=== PATIENT | male | born 1970 | race Caucasian/White ===

== ENCOUNTER 2018-12-19 11:09 | Outpatient (CLI) | payer MEDICARE ==
[~2018-12-19] VITALS: Ht 188 cm; Wt 99.1 kg
[2018-12-19 13:41] VITALS: BP 89/68; Ht 188 cm; Wt 99.1 kg
--- NOTE | 2018-12-19 14:02 | NUR ---
1350-REC'D FROM RR. AWAKE AND ALERT, DENIES PAIN. VSS. IV PATENT AT KVO. AT BEDSIDE, CL IN EASY REACH.
[2019-02-04] MEDS ORDERED: CALCIUM CITRATE (12:02)
== END 2018-12-19 16:25 ==
LOC: D.OPS 11:09
PROVIDERS: ATTEND Family Medicine
DX: D64.9 Anemia, unspecified (principal)

== ENCOUNTER 2019-01-15 08:53 | Inpatient (IN) | payer MEDICARE ==
[~2019-01-15] VITALS: Ht 188 cm; Wt 94.1 kg
--- NOTE | 2019-01-15 09:17 | NUR ---
AWAKE/ALERT/ORIENTED AND DROWSY. BP )
[2019-01-15 09:40] LABS: APPEARANCE CLOUDY (CLEAR); BILIRUBIN NEGATIVE (NEGATIVE); COLOR YELLOW (YELLOW); GLUCOSE NEGATIVE (NEGATIVE); KETONE NEGATIVE (NEGATIVE); NITRITE NEGATIVE (NEGATIVE); PROTEIN 1+ mg/dL (NEGATIVE); UROBILINOGEN NORMAL (NORMAL)
[2019-01-15 09:42] LABS: BACTERIA MANY /hpf (NONE SEEN); EPITHELIAL CELLS 0-5 /hpf (0-5); MUCUS <1+ /lpf (NONE SEEN)
[2019-01-15 09:44] VITALS: BP 93/59
[2019-01-15 09:58] LABS: ANION GAP 11.7 mmol/L (8-16); BILIRUBIN - TOTAL 0.26 mg/dL (0.2-1.3); CARBON DIOXIDE 19.7 mmol/L (21.0-32.0); CREATININE - SERUM 1.3 mg/dL (0.6-1.3); POTASSIUM - SERUM 3.4 mmol/L (3.5-5.1); PROTEIN - SERUM 5.9 g/dL (6.4-8.2)
[2019-01-15 10:21] LABS: BASOPHILS 0.3 % (0-2); EOSINOPHILS 2.3 % (0-7); HEMATOCRIT 20.4 % (42.0-54.0); IMMATURE GRANULOCYTES 1.8 % (0-5); LYMPHOCYTES 16.5 % (15-50); MCH 28.4 pg (26.0-34.0); MCHC 32.4 g/dL (31.0-37.0); MCV 87.9 fL (80.0-100.0); MEAN PLATELET VOLUME 9.7 fL (7.4-10.4); NEUTROPHILS 70.1 % (40-80); PLATELET COUNT 94 10x3/uL (130-400); RBC 2.32 10x6/uL (4.20-6.10); RDW 19.2 % (11.5-14.5)
[2019-01-15 10:52] LABS: HEMOGLOBIN 6.6 g/dL (13.5-17.5)
[2019-01-15 10:53] LABS: ANISOCYTOSIS OCC; HYPOCHROMASIA OCC; PLATELET ESTIMATE DECREASED; POLYCHROMASIA OCC
[2019-01-15 11:02] VITALS: BP 94/60
[2019-01-15 11:03] LABS: MAGNESIUM - SERUM 1.4 mg/dL (1.8-2.4); THYROID STIMULATING HORMONE 14.33 uIU/mL (0.36-3.74)
--- NOTE | 2019-01-15 11:32 | NUR ---
SUPRAPUBIC DRSG SATURATED. DRSG CHANGE PERFORMED. SKIN INTACT AT AREA. PT HAS 2 DRSGS TO SACRAL AREA BOTH WITH D/I DRSGS DATED 01/14/19
--- NOTE | 2019-01-15 11:40 | MORECARE ---
CASE MANAGEMENT DISCHARGE SUMMARY PATIENT: HARSHAD OLIVER UNIT: [id number] ADM DATE: 01/15/19 AGE: 48 : 68 SEX: M ROOM/BED: D.1212 AUTHOR: PEDRO REINOSO PHYSICIAN: REFERRING PHYSICIAN: ASHKAN LANG MD DATE OF SERVICE: 01/15/19 Discharge Plan Patient Name: HARSHAD OLIVER Facility: [facility]:[place] : 1970 Planned Disposition: Anticipated Discharge Date: Discharge Date: Expected LOS: Initial Reviewer: [email or web address] Initial Review Date: 01/15/2019 Generated: 01/15/19 12:40 pm Patient Name: HARSHAD OLIVER Page 85654 at 1140 All edits/amendments must be made on the electronic document DICTATION DATE: 01/15/19 1140 PHYSICIAN EXTENDER: MICHAEL 01/15/19 1140 RPT#: [id number] DC DATE: STATUS: ADM IN [facility] [address] [place] [address] END OF REPORT
--- NOTE | 2019-01-15 11:55 | NUR ---
BLOOD TRANSFUSION INITIATED SEE PAPER DOCUMENTATION
[2019-01-15 12:10] VITALS: Ht 188 cm; Wt 94.1 kg
--- NOTE | 2019-01-15 12:24 | NUR ---
REPORT CALLED TO SMITH BALLESTEROS BY SBARF FORMAT
--- NOTE | 2019-01-15 12:59 | NUR ---
RECIEVED PT FROM ER TO ROOM 1211. PT HAS A PIC LINE INFUSING BLOOD @ 150. RR EVEN AND UNLABORED. PT IS STATING HE DOES NOT WANT TO BE ADMITED. ANSHUL WAS NOTIFIED AND SAID SHE WOULD BE DOWN TO TALK TO HIM. BED LOCKED AND IN LOWEST POSITION. CALL LIGHT WITHIN REACH. WILL CTM
--- NOTE | 2019-01-15 13:45 | MORECARE ---
CASE MANAGEMENT DISCHARGE SUMMARY PATIENT: HARSHAD OLIVER UNIT: [id number] ADM DATE: 01/15/19 AGE: 48 : 68 SEX: M ROOM/BED: D.1211 AUTHOR: PEDRO REINOSO PHYSICIAN: REFERRING PHYSICIAN: ASHKAN LANG MD DATE OF SERVICE: 01/15/19 Discharge Plan Patient Name: HARSHAD OLIVER Facility: [facility]:[place] : 1970 Planned Disposition: Halfway Facility Anticipated Discharge Date: 01/17/19 Discharge Date: Expected LOS: 2 Initial Reviewer: [email or web address] Initial Review Date: 01/15/2019 Generated: 01/15/19 2:45 pm DCPIA - Discharge Planning Initial Assessment Updated by [email or web address]: April Mcgowan on 01/15/19 1:41 pm * Is the patient Alert and Oriented? Yes * How many steps to enter\exit or inside your home? none * PCP Dr. Mesha Jang * Pharmacy [facility] * Preadmission Environment Halfway Facility * Facility Name [facility] * ADLs Partial Dependent * Partial ADLs (Assistance needed) Ambulation Bathing Dressing Medication Management Toileting Transfers * Equipment Wheelchair * List name and contact numbers for known caregivers / representatives who currently or will assist patient after discharge: Marilou Tsai Girlfrienjigar - [phone] * Verbal permission to speak to the caregivers and representatives has been obtained from the patient. Yes * Community resources currently utilized None * Additional services required to return to the preadmission environment? No * Can the patient safely return to the preadmission environment? Yes * Has this patient been hospitalized within the prior 30 days at any hospital? Yes Last DP export: 01/15/19 10:40 a Patient Name: HARSHAD OLIVER Page 45396 at 1345 All edits/amendments must be made on the electronic document DICTATION DATE: 01/15/19 1345 PROJECT MANAGER INDUSTRIAL: MICHAEL 01/15/19 1345 RPT#: [id number] DC DATE: STATUS: ADM IN [facility] [address] [place] [address] END OF REPORT
--- NOTE | 2019-01-15 13:54 | MORECARE ---
CASE MANAGEMENT DISCHARGE SUMMARY PATIENT: HARSHAD OLIVER UNIT: [id number] ADM DATE: 01/15/19 AGE: 48 : 68 SEX: M ROOM/BED: D.1211 AUTHOR: KEMAR,DOC PHYSICIAN: REFERRING PHYSICIAN: ASHKAN LANG MD DATE OF SERVICE: 01/15/19 Discharge Plan Patient Name: HARSHAD OLIVER Facility: [facility]:[place] : 1970 Planned Disposition: Prison Facility Anticipated Discharge Date: 01/17/19 Discharge Date: Expected LOS: 2 Initial Reviewer: [email or web address] Initial Review Date: 01/15/2019 Generated: 01/15/19 2:54 pm Comments DCP- Discharge Planning Updated by [email or web address]: April Mcgowan on 01/15/19 12:[address] DC PLAN: ANTICIPATED DC NEEDS: CM met with patient to complete initial dc planning assessment. CM educated patient on the CM role and verbal consent given by patient to complete assessment. CM verified patient's address, phone number, and emergency contact phone numbers. Patient is currently in rehab @ [facility]. At discharge patient plans to return to [facility] and feels this is a safe discharge. Patient denied further known discharge needs at this time. Patient reports either Ambulance or [facility] Van will transport him/her home at time of discharge. Patient called Marilou (girl friend/ works at [facility]) and had cm explained to her why he could not be treated at [facility] and why he had to stay here at the hospital for care. CM explained to her that he was receiving blood transfusion and getting IV ABT. She stated they could do the IV abt there at their facility. I assured her once the physician felt he was medically stable to be treated at their facility we would be dc him back. Shannan PATEL in the room during this conversation and told the patient that they had to look into why his lab values were abnormal and assured him she would get his dc back to [facility] as soon as she could. CM will continue to follow and will assist as needed with dc plans/needs. April Mcgowan RN, [facility] DCPIA - Discharge Planning Initial Assessment Updated by [email or web address]: April Mcgowan on 01/15/19 1:41 pm * Is the patient Alert and Oriented? Yes * How many steps to enter\exit or inside your home? none * PCP Dr. Mesha Jang * Pharmacy [facility] * Preadmission Environment Prison Facility * Facility Name [facility] * ADLs Partial Dependent * Partial ADLs (Assistance needed) Ambulation Bathing Dressing Medication Management Toileting Transfers * Equipment Wheelchair * List name and contact numbers for known caregivers / representatives who currently or will assist patient after discharge: Marilou Alfaro - Girlfriend - [phone] * Verbal permission to speak to the caregivers and representatives has been obtained from the patient. Yes * Community resources currently utilized None * Additional services required to return to the preadmission environment? No * Can the patient safely return to the preadmission environment? Yes * Has this patient been hospitalized within the prior 30 days at any hospital? Yes Last DP export: 01/15/19 12:45 p Patient Name: HARSHAD OLIVER Page [id number] at 1354 All edits/amendments must be made on the electronic document DICTATION DATE: 01/15/19 1354 PILL MACHINE OPERATOR: MICHAEL 01/15/19 1354 RPT#: [id number] DC DATE: STATUS: ADM IN [facility] [address] [place] [address] END OF REPORT
--- NOTE | 2019-01-15 14:02 | MORECARE ---
CASE MANAGEMENT DISCHARGE SUMMARY PATIENT: HARSHAD OLIVER UNIT: [id number] ADM DATE: 01/15/19 AGE: 48 : 68 SEX: M ROOM/BED: D.1211 AUTHOR: KEMAR,DOC PHYSICIAN: REFERRING PHYSICIAN: ASHKAN LANG MD DATE OF SERVICE: 01/15/19 Discharge Plan Patient Name: HARSHAD OLIVER Facility: [facility]:[place] : 1970 Planned Disposition: Intermediate Facility Anticipated Discharge Date: 01/17/19 Discharge Date: Expected LOS: 2 Initial Reviewer: [email or web address] Initial Review Date: 01/15/2019 Generated: 01/15/19 3:02 pm Comments DCP- Discharge Planning Updated by [email or web address]: April Mcgowan on 01/15/19 12:[address] DC PLAN: Return to [facility] (In rehab) ANTICIPATED DC NEEDS: Denied known dc needs at this time. CM met with patient to complete initial dc planning assessment. CM educated patient on the CM role and verbal consent given by patient to complete assessment. CM verified patient's address, phone number, and emergency contact phone numbers. Patient is currently in rehab @ [facility]. At discharge patient plans to return to [facility] and feels this is a safe discharge. Patient denied further known discharge needs at this time. Patient reports either Ambulance or [facility] Van will transport him/her home at time of discharge. Patient called Marilou (girl friend/ works at [facility]) and had cm explained to her why he could not be treated at [facility] and why he had to stay here at the hospital for care. CM explained to her that he was receiving blood transfusion and getting IV ABT. She stated they could do the IV abt there at their facility. I assured her once the physician felt he was medically stable to be treated at their facility we would be dc him back. Shannan PATEL in the room during this conversation and told the patient that they had to look into why his lab values were abnormal and assured him she would get his dc back to [facility] as soon as she could. CM will continue to follow and will assist as needed with dc plans/needs. April Mcgowan RN, [facility] DCPIA - Discharge Planning Initial Assessment Updated by [id number]: April Mcgowan on 01/15/19 1:41 pm * Is the patient Alert and Oriented? Yes * How many steps to enter\exit or inside your home? none * PCP Dr. Mesha Jang * Pharmacy [facility] * Preadmission Environment Intermediate Facility * Facility Name [facility] * ADLs Partial Dependent * Partial ADLs (Assistance needed) Ambulation Bathing Dressing Medication Management Toileting Transfers * Equipment Wheelchair * List name and contact numbers for known caregivers / representatives who currently or will assist patient after discharge: Marilou Alfrao - Girlfriend - [phone] * Verbal permission to speak to the caregivers and representatives has been obtained from the patient. Yes * Community resources currently utilized None * Additional services required to return to the preadmission environment? No * Can the patient safely return to the preadmission environment? Yes * Has this patient been hospitalized within the prior 30 days at any hospital? Yes Last DP export: 01/15/19 12:54 p Patient Name: HARSHAD OLIVER Page [phone] at 1402 All edits/amendments must be made on the electronic document DICTATION DATE: 01/15/191401 CUSTOMER CARE ASSISTANT: MICHAEL 01/15/191401 RPT#: [id number] DC DATE: STATUS: ADM IN [facility] [address] [place] [address] END OF REPORT
--- NOTE | 2019-01-15 15:42 | NUR ---
Admitted to M3 from intermediate. Pt has numerous skin issues: right medial lower leg 1cm x 1cm - healing wound right heel: stage 1 pressure injury - nonblanchable redness and bogginess right medial foot: blanchable redness Coccyx: unstageable pressure injury 5cm x 5cm surrounded by stage 2 pressure injury extending from coccyx to bilateral ischial tuberosities to sacrum. Left scrotum has a 1cm x 1cm stage 2 pressure injury. Pt has f/c and is incontinent of bowels. Recommend an air overlay mattress, turn/reposition q 2 hours schedule, keep heels bridged/floated. Also pt will need a debriding agent for unstageable pressure injury.
[2019-01-15 20:00] VITALS: BP 92/48
--- NOTE | 2019-01-15 20:00 | NUR ---
LYING IN BED WATCHING TV. ALERT AND ORIENTED X4. SKIN IS VERY PALE. RESP EVEN AND NONLABORED. EDEMA NOTED TO BLE. BLE ARE FLACCID. PT IS PARAPLEGIC. DRSGS NOTED TO BILAT HIPS/BUTTOCKS,SACRUM. 1ST STEP OVERLAY MATTRESS IN USE. DRSG NOTED TO ABD IS SATURATED IN YELLOW FLUID WHERE ABD DRAIN SITE IS LEAKING AROUND DRAIN TUBING. PT HAS A CHRONIC RUBIN CATH DRAINING CLOUDY YELLOW URINE. LR @ 50 MLHR INFUSING IN RT UPPER ARM PICC. SR ELEVATED X2. CL IN REACH.
--- NOTE | 2019-01-15 21:00 | NUR ---
DRSG AROUND ABD DRAIN REMOVED. 4X4S AND ABD PADS APPLIED AND SECURED WITH TAPE.
--- NOTE | 2019-01-15 23:51 | NUR ---
MEDICATED WITH TYLENOL FOR C/O NECK AND SHOULDER PAIN.
[2019-01-16 00:45] VITALS: BP 90/60
[2019-01-16 04:00] VITALS: BP 90/60
--- NOTE | 2019-01-16 07:57 | NUR ---
PT RESTING, EYES CLOSED. RR EVEN AND UNLABORED. WILL CONTINUE TO MONITOR.
[2019-01-16 08:02] VITALS: BP 84/43
[2019-01-16 09:18] LABS: MCH 29.6 pg (26.0-34.0); MCHC 34.5 g/dL (31.0-37.0); MEAN PLATELET VOLUME 9.6 fL (7.4-10.4); PLATELET COUNT 78 10x3/uL (130-400); RDW 17.7 % (11.5-14.5); WBC 3.8 10x3/uL (4.8-10.8)
[2019-01-16 09:20] LABS: ALBUMIN 1.3 g/dL (3.4-5.0); ALKALINE PHOSPHATASE 244 U/L (46-116); ALT (SGPT) 11 U/L (10-68); BILIRUBIN - TOTAL 0.49 mg/dL (0.2-1.3); CALC OSMOLALITY 269 mosm/kg (275-300); CALCIUM 7.2 mg/dL (8.5-10.1); CARBON DIOXIDE 18.9 mmol/L (21.0-32.0); CHLORIDE - SERUM 106 mmol/L (98-107); GLUCOSE 72 mg/dL (74-106); MAGNESIUM - SERUM 1.6 mg/dL (1.8-2.4); POTASSIUM - SERUM 3.5 mmol/L (3.5-5.1); PROTEIN - SERUM 5.5 g/dL (6.4-8.2); SODIUM 135 mmol/L (136-145); UREA NITROGEN 15 mg/dL (7-18); eGFR NON AFRICAN AMERICAN 84 mL/min (90-120)
[2019-01-16 09:21] LABS: HEMATOCRIT 26.7 % (42.0-54.0); HEMOGLOBIN 9.2 g/dL (13.5-17.5); MCV 85.9 fL (80.0-100.0); RBC 3.11 10x6/uL (4.20-6.10)
[2019-01-16 10:17] LABS: LYMPHOCYTES 18 % (15-50); MONOCYTES 4 % (2-11); NEUTROPHILS 78 % (40-80); PLATELET ESTIMATE DECREASED
--- NOTE | 2019-01-16 11:00 | NUR ---
ABDOMINAL DRAIN DRESSING CHANGED AND LINENS AND GOWN CHANGED. PT DENIES NEEDS AT THIS TIME.
--- NOTE | 2019-01-16 11:56 | MORECARE ---
CASE MANAGEMENT DISCHARGE SUMMARY PATIENT: HARSHAD OLIVER UNIT: [id number] ADM DATE: 01/15/19 AGE: 48 : 68 SEX: M ROOM/BED: D.1211 AUTHOR: KEMAR,DOC PHYSICIAN: REFERRING PHYSICIAN: ASHKAN LANG MD DATE OF SERVICE: 01/16/19 Discharge Plan Patient Name: HARSHAD OLIVER Facility: [facility]:[place] : 1970 Planned Disposition: Fpc Facility Anticipated Discharge Date: 01/17/19 Discharge Date: Expected LOS: 2 Initial Reviewer: [email or web address] Initial Review Date: 01/15/2019 Generated: 01/16/19 12:55 pm Comments DCP- Discharge Planning Updated by [email or web address]: Tiffanie Martinez on 01/16/19 10:[address] Patient Name: HARSHAD OLIVER Admission Status: ER Accout number: [id number] Admission Date: 01-15-2019 : 1970 Admission Diagnosis: Attending: ASHKAN LANG Current LOS: 1 Anticipated DC Date: 01-17-2019 Planned Disposition: Fpc Facility Primary Insurance: MEDICARE A & B Discharge Planning Comments: CM SPOKE WITH [facility] AND THEY STATE THEY WILL SCOURING PADS SUPERVISOR PATIENT AT APPROX 3PM TODAY. NURSE CAN CALL REPORT TO CALI AT [phone]. Money Manager: Tiffanie Martinez DCP- Discharge Planning Updated by [email or web address]: April Mcgowan on 01/15/19 12:[address] DC PLAN: Return to [facility] (In rehab) ANTICIPATED DC NEEDS: Denied known dc needs at this time. CM met with patient to complete initial dc planning assessment. CM educated patient on the CM role and verbal consent given by patient to complete assessment. CM verified patient's address, phone number, and emergency contact phone numbers. Patient is currently in rehab @ [facility]. At discharge patient plans to return to [facility] and feels this is a safe discharge. Patient denied further known discharge needs at this time. Patient reports either Ambulance or [facility] Van will transport him/her home at time of discharge. Patient called Marilou (girl friend/ works at [facility]) and had cm explained to her why he could not be treated at [facility] and why he had to stay here at the hospital for care. CM explained to her that he was receiving blood transfusion and getting IV ABT. She stated they could do the IV abt there at their facility. I assured her once the physician felt he was medically stable to be treated at their facility we would be dc him back. Shannan ADAMSN in the room during this conversation and told the patient that they had to look into why his lab values were abnormal and assured him she would get his dc back to [facility] as soon as she could. CM will continue to follow and will assist as needed with dc plans/needs. April Mcgowan RN, [facility] DCPIA - Discharge Planning Initial Assessment Updated by [email or web address]: April Mcgowan on 01/15/19 1:41 pm * Is the patient Alert and Oriented? Yes * How many steps to enter\exit or inside your home? none * PCP Dr. Mesha Jang * Pharmacy [facility] * Preadmission Environment Fpc Facility * Facility Name [facility] * ADLs Partial Dependent * Partial ADLs (Assistance needed) Ambulation Bathing Dressing Medication Management Toileting Transfers * Equipment Wheelchair * List name and contact numbers for known caregivers / representatives who currently or will assist patient after discharge: Marilou Alfaro - Girlfriend - [phone] * Verbal permission to speak to the caregivers and representatives has been obtained from the patient. Yes * Community resources currently utilized None * Additional services required to return to the preadmission environment? No * Can the patient safely return to the preadmission environment? Yes * Has this patient been hospitalized within the prior 30 days at any hospital? Yes Last DP export: 01/15/19 1:02 p Patient Name: HARSHAD OLIVER Page [id number] at 1156 All edits/amendments must be made on the electronic document DICTATION DATE: 01/16/191154 RESIDENCE LIFE COORDINATOR: MICHAEL 01/16/191154 RPT#: [id number] DC DATE: STATUS: ADM IN [facility] [address] [place] [address] END OF REPORT
--- NOTE | 2019-01-16 14:18 | NUR ---
PT WAS LIFTED VIA GRAY LIFT FROM BED INTO CHAIR WITH ASSISTANCE FROM PHYSICAL THERAPY. REPORT CALLED TO CALI AT [facility]. [facility] TRANSPORT ASSISTED HIM VIA WHEELCHAIR TO THEIR TRANSPORTATION. PICC LINE WAS FLUSHED WITH 20MLS SALINE FLUSH AND SWAB CAP PLACED OVER SITES. PT DID NOT NEED DRESSING CHANGE BEFORE LEAVING. D/C PAPERWORK REVIEWED, VERBALIZED UNDERSTANDING. ALL BELONGINGS SENT WITH PT.
--- NOTE | 2019-01-17 07:55 | MORECARE ---
CASE MANAGEMENT DISCHARGE SUMMARY PATIENT: HARSHAD OLIVER UNIT: [id number] ADM DATE: 01/15/19 AGE: 48 : 68 SEX: M ROOM/BED: D.1211 AUTHOR: KEMAR,DOC PHYSICIAN: REFERRING PHYSICIAN: ASHKAN LANG MD DATE OF SERVICE: 01/17/19 Discharge Plan Patient Name: HARSHAD OLIVER Facility: [facility]:[place] : 1970 Planned Disposition: Assisted Facility Anticipated Discharge Date: 01/17/19 Discharge Date: 01/16/2019 Expected LOS: 2 Initial Reviewer: [email or web address] Initial Review Date: 01/15/2019 Generated: 01/17/19 8:55 am Comments DCP- Discharge Planning Updated by [email or web address]: Tiffanie Martinez on 01/16/19 10:[address] Patient Name: HARSHAD OLIVER Admission Status: ER Accout number: [id number] Admission Date: 01-15-2019 : 1970 Admission Diagnosis: Attending: ASHKAN LANG Current LOS: 1 Anticipated DC Date: 01-17-2019 Planned Disposition: Assisted Facility Primary Insurance: MEDICARE A & B Discharge Planning Comments: CM SPOKE WITH [facility] AND THEY STATE THEY WILL POSSUM TRAPPER PATIENT AT APPROX 3PM TODAY. NURSE CAN CALL REPORT TO CALI AT [phone]. Firer Boiler: Tiffanie Martinez DCP- Discharge Planning Updated by [email or web address]: April Mcgowan on 01/15/19 12:[address] DC PLAN: Return to [facility] (In rehab) ANTICIPATED DC NEEDS: Denied known dc needs at this time. CM met with patient to complete initial dc planning assessment. CM educated patient on the CM role and verbal consent given by patient to complete assessment. CM verified patient's address, phone number, and emergency contact phone numbers. Patient is currently in rehab @ [facility]. At discharge patient plans to return to [facility] and feels this is a safe discharge. Patient denied further known discharge needs at this time. Patient reports either Ambulance or [facility] Van will transport him/her home at time of discharge. Patient called Marilou (girl friend/ works at [facility]) and had cm explained to her why he could not be treated at [facility] and why he had to stay here at the hospital for care. CM explained to her that he was receiving blood transfusion and getting IV ABT. She stated they could do the IV abt there at their facility. I assured her once the physician felt he was medically stable to be treated at their facility we would be dc him back. Shannan ADAMSN in the room during this conversation and told the patient that they had to look into why his lab values were abnormal and assured him she would get his dc back to [facility] as soon as she could. CM will continue to follow and will assist as needed with dc plans/needs. April Mcgowan RN, [facility] DCPIA - Discharge Planning Initial Assessment Updated by [email or web address]: April Mcgowan on 01/15/19 1:41 pm * Is the patient Alert and Oriented? Yes * How many steps to enter\exit or inside your home? none * PCP Dr. Mesha Jang * Pharmacy [facility] * Preadmission Environment Assisted Facility * Facility Name [facility] * ADLs Partial Dependent * Partial ADLs (Assistance needed) Ambulation Bathing Dressing Medication Management Toileting Transfers * Equipment Wheelchair * List name and contact numbers for known caregivers / representatives who currently or will assist patient after discharge: Marilou Alfaro - Girlfriend - [phone] * Verbal permission to speak to the caregivers and representatives has been obtained from the patient. Yes * Community resources currently utilized None * Additional services required to return to the preadmission environment? No * Can the patient safely return to the preadmission environment? Yes * Has this patient been hospitalized within the prior 30 days at any hospital? Yes Last DP export: 01/16/19 10:56 a Patient Name: HARSHAD OLIVER Page 83180 at 0755 All edits/amendments must be made on the electronic document DICTATION DATE: 01/17/19754 PROFESSIONAL SERVICES SPECIALIST: MICHAEL 01/17/19754 RPT#: [id number] DC DATE:01/16/19 STATUS: DIS IN [facility] [address] [place] [address] END OF REPORT
== END 2019-01-16 14:26 | DRG 808 ==
LOC: D.ER 08:53 → D.M3 10:56
PROVIDERS: Emergency Medicine; ADMIT Internal Medicine Nephrology; ATTEND Internal Medicine Nephrology
DX: D61.810 Antineoplastic chemotherapy induced pancytopenia (principal); E43 Unspecified severe protein-calorie malnutrition; E87.1 Hypo-osmolality and hyponatremia; G82.20 Paraplegia, unspecified; T45.1X5A Adverse effect of antineoplastic and immunosuppressive drugs, initial encounter; Z68.26 Body mass index [BMI] 26.0-26.9, adult; L89.509 Pressure ulcer of unspecified ankle, unspecified stage; L89.150 Pressure ulcer of sacral region, unstageable; F10.10 Alcohol abuse, uncomplicated; E03.9 Hypothyroidism, unspecified; E87.6 Hypokalemia; E83.42 Hypomagnesemia; Z85.51 Personal history of malignant neoplasm of bladder

== ENCOUNTER 2019-02-04 11:37 | Emergency (ER) | payer MEDICARE ==
[~2019-02-04] VITALS: Ht 188 cm; Wt 90.0 kg
[2019-02-04 11:42] VITALS: Ht 188 cm; Wt 90.0 kg
[2019-02-04] MEDS ORDERED: GLUCOPHAGE500 MG PO (11:52)
[2019-02-04] MEDS ORDERED: MEGACE400 MG/10 PO (11:52)
[2019-02-04] MEDS ORDERED: MULTI-DAY VITAM1 TAB PO (11:53)
[2019-02-04] MEDS ORDERED: OMEPRAZOLE20 M1 PO (11:57)
[2019-02-04] MEDS ORDERED: MYLANTA / MAALO30 ML PO (11:57)
[2019-02-04] MEDS ORDERED: KLOR-CON M2020 MEQ PO (11:58)
[2019-02-04] MEDS ORDERED: OXYCODONE HCL E20 MG PO (11:58)
[2019-02-04] MEDS ORDERED: PHENERGAN25 M1 PO (11:59)
[2019-02-04] MEDS ORDERED: ASCORBIC ACID500 MG PO (11:59)
[2019-02-04] MEDS ORDERED: SYNTHROID100 MCG PO (11:59)
[2019-02-04] MEDS ORDERED: PROMOD LIQUID P30 M1 PO (11:59)
[2019-02-04] MEDS ORDERED: VITAMIN B-12500 MCG PO (12:00)
[2019-02-04] MEDS ORDERED: ZOFRAN8 MG PO (12:00)
[2019-02-04] MEDS ORDERED: MARINOL5 MG PO (12:02)
[2019-02-04] MEDS ORDERED: CALCIUM CITRATE PO (12:02)
[2019-02-04] MEDS ORDERED: FERROUS SULFAT325 MG PO (12:03)
[2019-02-04] MEDS ORDERED: MAG-OXIDE400 MG PO (12:03)
[2019-02-04] MEDS ORDERED: PROBIOTIC1 EAC1 PO (12:03)
[2019-02-04 12:28] LABS: BASOPHILS 0 % (0-2); EOSINOPHILS 0.9 % (0-7); HEMATOCRIT 28.4 % (42.0-54.0); HEMOGLOBIN 9.3 g/dL (13.5-17.5); IMMATURE GRANULOCYTES 1.1 % (0-5); LYMPHOCYTES 8.5 % (15-50); MCHC 32.7 g/dL (31.0-37.0); MCV 91.6 fL (80.0-100.0); MEAN PLATELET VOLUME 9.8 fL (7.4-10.4); MONOCYTES 5.3 % (2-11); NEUTROPHILS 84.2 % (40-80); RDW 16.7 % (11.5-14.5); WBC 7.5 10x3/uL (4.8-10.8)
[2019-02-04 12:34] LABS: PLATELET COUNT 162 10x3/uL (130-400)
[2019-02-04 12:44] LABS: ALBUMIN 1.2 g/dL (3.4-5.0); ALKALINE PHOSPHATASE 264 U/L (46-116); ALT (SGPT) 16 U/L (10-68); BILIRUBIN - TOTAL 0.54 mg/dL (0.2-1.3); CALC OSMOLALITY 265 mosm/kg (275-300); CALCIUM 7.4 mg/dL (8.5-10.1); CARBON DIOXIDE 22.3 mmol/L (21.0-32.0); CHLORIDE - SERUM 101 mmol/L (98-107); CREATININE - SERUM 0.8 mg/dL (0.6-1.3); GLUCOSE 91 mg/dL (74-106); POTASSIUM - SERUM 3.4 mmol/L (3.5-5.1); PROTEIN - SERUM 6.5 g/dL (6.4-8.2); SODIUM 132 mmol/L (136-145); UREA NITROGEN 15 mg/dL (7-18); eGFR NON AFRICAN AMERICAN > 90 mL/min (90-120)
[2019-02-04 17:12] VITALS: BP 132/85
== END 2019-02-04 17:13 | disposition home or self-care (01) ==
LOC: D.ER 11:37
PROVIDERS: Family Medicine
DX: E86.0 Dehydration (principal); E87.6 Hypokalemia; R49.22 Hyponasality; E11.9 Type 2 diabetes mellitus without complications

== ENCOUNTER 2019-02-06 10:20 | Inpatient (IN) | payer MEDICARE ==
[~2019-02-06] VITALS: Ht 188 cm; Wt 89.8 kg
[~2019-02-06 10:20] MED LIST: ASCORBIC ACID500 MG PO; CALCIUM CITRATE PO; FERROUS SULFAT325 MG PO; GLUCOPHAGE500 MG PO; KLOR-CON M2020 MEQ PO; MAG-OXIDE400 MG PO; MARINOL5 MG PO; MEGACE400 MG/10 PO; MULTI-DAY VITAM1 TAB PO; MYLANTA / MAALO30 ML PO; OMEPRAZOLE20 M1 PO; OXYCODONE HCL E20 MG PO; PHENERGAN25 M1 PO; PROBIOTIC1 EAC1 PO; PROMOD LIQUID P30 M1 PO; SYNTHROID100 MCG PO; VITAMIN B-12500 MCG PO; ZOFRAN8 MG PO
[2019-02-06 10:58] LABS: BASOPHILS 0.2 % (0-2); EOSINOPHILS 1.3 % (0-7); HEMATOCRIT 26.4 % (42.0-54.0); HEMOGLOBIN 8.5 g/dL (13.5-17.5); IMMATURE GRANULOCYTES 0.9 % (0-5); LYMPHOCYTES 10.3 % (15-50); MCH 29.7 pg (26.0-34.0); MCHC 32.2 g/dL (31.0-37.0); MCV 92.3 fL (80.0-100.0); MONOCYTES 6.1 % (2-11); NEUTROPHILS 81.2 % (40-80); PLATELET COUNT 149 10x3/uL (130-400); RBC 2.86 10x6/uL (4.20-6.10); RDW 16.8 % (11.5-14.5); WBC 6.4 10x3/uL (4.8-10.8)
[2019-02-06 11:12] LABS: INR 1.84 (0.85-1.17); PROTIME 20.6 SECONDS (11.6-15.0)
[2019-02-06 11:13] LABS: APTT 46.5 SECONDS (22.8-39.4)
[2019-02-06 11:17] LABS: ALBUMIN 1.2 g/dL (3.4-5.0); ALKALINE PHOSPHATASE 255 U/L (46-116); ALT (SGPT) 16 U/L (10-68); CALC OSMOLALITY 270 mosm/kg (275-300); CARBON DIOXIDE 18.9 mmol/L (21.0-32.0); CHLORIDE - SERUM 105 mmol/L (98-107); CREATININE - SERUM 0.8 mg/dL (0.6-1.3); GLUCOSE 81 mg/dL (74-106); POTASSIUM - SERUM 3.6 mmol/L (3.5-5.1); PROTEIN - SERUM 5.7 g/dL (6.4-8.2); SODIUM 136 mmol/L (136-145); UREA NITROGEN 13 mg/dL (7-18); eGFR NON AFRICAN AMERICAN > 90 mL/min (90-120)
[2019-02-06 11:29] LABS: CKMB 0.6 U/L (0.0-3.6); CREATINE KINASE 13 UL (21-232); TROPONIN-I < 0.017 ng/mL (0.000-0.060)
[2019-02-06 13:48] LABS: APPEARANCE CLOUDY (CLEAR); BILIRUBIN NEGATIVE (NEGATIVE); COLOR YELLOW (YELLOW); GLUCOSE NEGATIVE (NEGATIVE); KETONE NEGATIVE (NEGATIVE); NITRITE NEGATIVE (NEGATIVE); PROTEIN 2+ mg/dL (NEGATIVE); UROBILINOGEN NORMAL (NORMAL)
[2019-02-06 13:55] LABS: BACTERIA MANY /hpf (NEGATIVE); EPITHELIAL CELLS NSEEN /hpf (0-5)
--- NOTE | 2019-02-06 14:04 | NUR ---
PT GIVEN APPLE JUICE PER REQUEST.
[2019-02-06 15:36] VITALS: BP 102/67; BMI 25.4
--- NOTE | 2019-02-06 15:46 | NUR ---
longterm pt admitted to . Numerous chronic wounds as noted: Right buttocks: healing stage 2 pressure injury measuring 5cm x 5cm Right buttocks: healing stage 2 pressure injury measuring 9cm x 9cm Sacrum: unstageable pressure injury measuring 7cm x 4cm x approx 6cm wound bed partially covered with pruett escar. Left buttocks: stage 3 pressure injury measuring 4cm x 3cm x 0.5cm Scrotum: open wound 0.5cm x 0.5cm Abdomen has a drain and surrounding skin has numerous skin tears. Left lateral knee: 1cm x 1cm x 0.4cm stage 2 pressure injury Left lateral ankle: 3.5cm x 3.5cm x 0.5cm stage 3 pressure injury Left heel: blanchable redness Right lateral ankle: blanchable redness Right medial lower lecm x 1cm Right heel: blanchable redness Recommendations: -air overlay mattress -turn/reposition q 2 hours -pillow between knees and ankles -daily dressing changes to all wounds Wound care will continue monitoring.
--- NOTE | 2019-02-06 16:04 | MORECARE ---
CASE MANAGEMENT DISCHARGE SUMMARY PATIENT: HARSHAD OLIVER UNIT: [id number] ADM DATE: 02/06/19 AGE: 48 : 68 SEX: M ROOM/BED: D.2236 AUTHOR: KEMAR,DOC PHYSICIAN: REFERRING PHYSICIAN: LEONELA FERNANDEZ MD DATE OF SERVICE: 02/06/19 Discharge Plan Patient Name: HARSHAD OLIVER Facility: [facility]:[place] : 1970 Planned Disposition: SNF w Planned Readmission Anticipated Discharge Date: Discharge Date: Expected LOS: Initial Reviewer: [email or web address] Initial Review Date: 02/06/2019 Generated: 02/06/19 5:04 pm DCP- Discharge Planning Updated by [email or web address]: April Mcgowan on 02/06/19 3:[address] [facility] ANTICIPATED DC NEEDS: Denied known dc needs. CM met with patient to complete initial dc planning assessment. CM educated patient on the CM role and verbal consent given by patient to complete assessment. CM verified patient's address, phone number, and emergency contact phone numbers. Patient is currently in rehab @ [facility]. At discharge patient plans to return to [facility] and feels this is a safe discharge. Patient denied further known discharge needs at this time. Patient reports [facility] will transport him home at time of discharge.CM will continue to follow and will assist as needed with dc plans/needs. April Mcgowan RN, [facility] DCPIA - Discharge Planning Initial Assessment Updated by [id number]: April Mcgowan on 02/06/19 4:00 pm * Is the patient Alert and Oriented? Yes * PCP Dr. Mesha Anaya * Pharmacy [facility] * Preadmission Environment [facility] * Facility Name [facility] * ADLs Partial Dependent * Partial ADLs (Assistance needed) Ambulation Bathing Toileting Transfers * Equipment Greyson Lift Wheelchair * List name and contact numbers for known caregivers / representatives who currently or will assist patient after discharge: Marilou - girlfriend - [phone] * Verbal permission to speak to the caregivers and representatives has been obtained from the patient. Yes * Additional services required to return to the preadmission environment? No * Can the patient safely return to the preadmission environment? Yes * Has this patient been hospitalized within the prior 30 days at any hospital? Yes Patient Name: HARSHAD OLIVER Page [phone] at 1604 All edits/amendments must be made on the electronic document DICTATION DATE: 02/06/191603 SERVICE WORKER HELPER: MICHAEL 02/06/191603 RPT#: [id number] DC DATE: STATUS: ADM IN [facility] [address] [place] [address] END OF REPORT
--- NOTE | 2019-02-06 16:05 | NUR ---
PATIENT ADMITTED TO ROOM 2236. ADMISSION ASSESSMENT COMPLETE PER ORDER. FLUIDS INCREASED TO [address] ROTA FOR BP 73/40. BP INCREASED TO 102/67. CONTINUING TO MONITOR.
--- NOTE | 2019-02-06 16:35 | NUR ---
PATIENT SEEN BY [facility] NURSE, ON ADMISSION. ALL PU STAGED AND CHARTED.
--- NOTE | 2019-02-06 16:37 | NUR ---
pt states took all of his am meds at nursing faciltiy this am
[2019-02-06 17:07] VITALS: BP 107/46
--- NOTE | 2019-02-06 17:22 | NUR ---
ATTEMPTED TO PLACE AIR OVERLAY ON BED. STATES NOT UP TO ROLLING RIGHT NOW. STATES WANTS TO "WAIT A LITTLE WHILE." WILL ATTEMPT LATER.
--- NOTE | 2019-02-06 18:26 | NUR ---
CONSENTS OBTAINED FOR PEG PLACEMENT.
--- NOTE | 2019-02-06 18:46 | NUR ---
RESTING IN BED. GIRLFRIEND AT BEDSIDE. DRSG CHANGED TO ABD D/T DRAINAGE. DENIES NEEDS. BED LOW. CALL KAT AND PERSONAL ITEMS IN REACH.
--- NOTE | 2019-02-06 23:35 | NUR ---
PT RESTING IN BED. EYES CLOSED. NO SIGNS OF DISTRESS. BREATHING EVEN AND UNLABORED. IV SITE RT UPPER ARM PICC. DRESSING CLEAN DRY AND INTACT. NO SIGNS OF INFECTION. LUNG SOUNDS CLEAR. BOWEL SOUNDS HYPOACTIVE. ABD MULTI OLD WOUNDS. LOWER ABD RUBIN DRAINAGE BAG. CONSTANT DRAINING AROUND SITE. WOUNDS BUTTOCKS X3. DRESSINGS CLEAN DRY AND INTACT. RUBIN PLACED AND DRAINING. CLEAN DRY AND INTACT AT RUBIN SITE. NO LOWER LEG SWELLING PRESENT. 1ST STEP OVERLAY MATTRESS ON. WILL CONTINUE PLAN OF CARE. CALL LIGHT IN REACH. BED LOWERED AND LOCKED. BED RAILS UP X2.
[2019-02-07] VITALS (7 sets, daily range): BP systolic 89–105; BP diastolic 58–65; Ht 188 cm; Wt 89.8 kg
[2019-02-07 06:38] LABS: BASOPHILS 0 % (0-2); HEMATOCRIT 24.2 % (42.0-54.0); HEMOGLOBIN 7.7 g/dL (13.5-17.5); IMMATURE GRANULOCYTES 0.9 % (0-5); LYMPHOCYTES 11.9 % (15-50); MCH 29.4 pg (26.0-34.0); MCHC 31.8 g/dL (31.0-37.0); MCV 92.4 fL (80.0-100.0); MEAN PLATELET VOLUME 9.8 fL (7.4-10.4); MONOCYTES 6.3 % (2-11); NEUTROPHILS 78.9 % (40-80); PLATELET COUNT 143 10x3/uL (130-400); RBC 2.62 10x6/uL (4.20-6.10); WBC 5.4 10x3/uL (4.8-10.8)
[2019-02-07 07:01] LABS: ALBUMIN 0.9 g/dL (3.4-5.0); ALKALINE PHOSPHATASE 224 U/L (46-116); ALT (SGPT) 14 U/L (10-68); BILIRUBIN - TOTAL 0.35 mg/dL (0.2-1.3); CALC OSMOLALITY 274 mosm/kg (275-300); CALCIUM 7.1 mg/dL (8.5-10.1); CARBON DIOXIDE 19.5 mmol/L (21.0-32.0); CHLORIDE - SERUM 107 mmol/L (98-107); CHOL - HDL RATIO 12.6 ratio (2.3-4.9); CHOLESTEROL, TOTAL 88 mg/dL (0-200); CREATININE - SERUM 0.8 mg/dL (0.6-1.3); GLUCOSE 99 mg/dL (74-106); HDL CHOLESTEROL 7 mg/dL (32-96); LDL CHOLESTEROL 42 mg/dL (0-100); PROTEIN - SERUM 5.2 g/dL (6.4-8.2); SODIUM 138 mmol/L (136-145); THYROID STIMULATING HORMONE 4.05 uIU/mL (0.36-3.74); TRIGLYCERIDE 196 mg/dL (30-200); UREA NITROGEN 10 mg/dL (7-18); eGFR NON AFRICAN AMERICAN > 90 mL/min (90-120)
[2019-02-07 07:10] LABS: POTASSIUM - SERUM 2.7 mmol/L (3.5-5.1)
--- NOTE | 2019-02-07 07:30 | NUR ---
ALERT AND ORIENTED. LUNGS CLEAR BILATERALLY IN ALL CULLEN. HEART SOUNDS S1 AND S2 HEARD IN ALL CULLEN. BOWEL SOUNDS ACTIVE X 4. DRSGS INTACT TO LEFT AND RIGHT BUTTOCKS, SACRUM, LEFT KNEE, AND LEFT HEEL. МАРИНА PICC PATENT WITHOUT REDNESS. DENIES NEEDS. BED LOW. CALL KAT AND PERSONAL ITEMS IN REACH. WILL CONTINUE TO MONITOR.
--- NOTE | 2019-02-07 07:40 | NUR ---
POTASSIUM RIDERS STARTED FOR POTASSIUM 2.7.
--- NOTE | 2019-02-07 09:12 | NUR ---
PATIENT RETURNED FROM PEG PLACEMENT. VOMITING. BP 90/60. WILL CONTINUE TOMONITOR.
--- NOTE | 2019-02-07 09:51 | NUR ---
PATIENT BATHED. WOUND CARE PROVIDED PER ORDER. STATES CANNOT TAKE AM MEDICATIONS.
--- NOTE | 2019-02-07 10:45 | NUR ---
SPOKE WITH DR FERNANDEZ WHO GAVE OK TO ACCESS PORT. PORT ACCESSED.
--- NOTE | 2019-02-07 11:04 | NUR ---
USING POTASSIUM 20 MEQ BAG D/T PATIENT HAVING PICC.
--- NOTE | 2019-02-07 11:05 | NUR ---
BLOOD CONTINUES INFUSIING. VITALS REMAIN STABLE.
--- NOTE | 2019-02-07 11:20 | NUR ---
BLOOD TRANSFUSION UNIT 1 INITIATED. VITALS STABLE.
--- NOTE | 2019-02-07 11:35 | NUR ---
BLOOD CONTINUES INFUSING. VITALS REMAIN STABLE.
--- NOTE | 2019-02-07 11:49 | NUR ---
RUBIN AND ABD DRAIN FLUSHED PER ORDER.
--- NOTE | 2019-02-07 12:55 | NUR ---
TUBE FEED INITIATED PER ORDER AT 10ML PER HOUR. WILL CONTINUE TO MONITOR.
--- NOTE | 2019-02-07 13:55 | NUR ---
BLOOD TRANSFUSION UNIT 1 COMPLETE. VITALS STABLE.
--- NOTE | 2019-02-07 14:00 | NUR ---
BLOOD TRANSFUSION UNIT 2 INITIATED. VITALS STABLE.
--- NOTE | 2019-02-07 14:13 | NUR ---
BLOOD CONTINUES INFUSING. VITALS REMAIN STABLE. PATIENT TOLERATING TUBE FEED.
--- NOTE | 2019-02-07 14:15 | NUR ---
SPOKE WITH GIRLFRIEND FARHAD ABOUT MEDICATION REC. STATES WILL BRING LIST OF MEDICATIONS.
--- NOTE | 2019-02-07 14:28 | MORECARE ---
CASE MANAGEMENT DISCHARGE SUMMARY PATIENT: HARSHAD OLIVER UNIT: [id number] ADM DATE: 02/06/19 AGE: 48 : 68 SEX: M ROOM/BED: D.2236 AUTHOR: KEMAR,DOC PHYSICIAN: REFERRING PHYSICIAN: LEONELA FRANKLIN MD DATE OF SERVICE: 02/07/19 Discharge Plan Patient Name: HARSHAD OLIVER Facility: [facility]:[place] : 1970 Planned Disposition: SNF w Planned Readmission Anticipated Discharge Date: Discharge Date: Expected LOS: Initial Reviewer: [email or web address] Initial Review Date: 02/06/2019 Generated: 02/07/19 3:27 pm Comments DCP- Discharge Planning Updated by [id number]: Meghan Dye on 02/07/19 1:[address] CM met with patient and SHANE for [facility] signed. He states Dr. Franklin thought he may be discharged on Sunday. I spoke with Flo at [facility] and they will accept back when ready for discharge, updated clinical faxed. CM will continue to follow and assist with discharge planning/needs. DCP- Discharge Planning Updated by [id number]: April Mcgowan on 02/06/19 3:[address] DC PLAN: Return to [facility] ANTICIPATED DC NEEDS: Denied known dc needs. CM met with patient to complete initial dc planning assessment. CM educated patient on the CM role and verbal consent given by patient to complete assessment. CM verified patient's address, phone number, and emergency contact phone numbers. Patient is currently in rehab @ [facility]. At discharge patient plans to return to [facility] and feels this is a safe discharge. Patient denied further known discharge needs at this time. Patient reports [facility] will transport him home at time of discharge.CM will continue to follow and will assist as needed with dc plans/needs. April Mcgowan RN, [facility] DCPIA - Discharge Planning Initial Assessment Updated by [email or web address]: April Mcgowan on 02/06/19 4:00 pm * Is the patient Alert and Oriented? Yes * PCP Dr. Mesha Anaya * Pharmacy [facility] * Preadmission Environment [facility] Facility * Facility Name [facility] * ADLs Partial Dependent * Partial ADLs (Assistance needed) Ambulation Bathing Toileting Transfers * Equipment Greyson Lift Wheelchair * List name and contact numbers for known caregivers / representatives who currently or will assist patient after discharge: Marilou hernandez - [phone] * Verbal permission to speak to the caregivers and representatives has been obtained from the patient. Yes * Additional services required to return to the preadmission environment? No * Can the patient safely return to the preadmission environment? Yes * Has this patient been hospitalized within the prior 30 days at any hospital? Yes External Providers External Provider: [facility] Next Contact Date: Service Request Date: Service Type: Resolution: Reviewer: Comments: Coverage Notice Reviewer: [email or web address] Eulalio Dye Notice Issued Date-Time: 02/07/2019 14:13 Notice Type: Patient Choice Letter Notice Delivered To: Patient Relationship to Patient: Self Ampoule Sealer Name: Delivery Method: HAND - Hand Delivered Bindu Days: Prior Verbal Notification: Recipient Understood Notice: Yes Recipient Signature: Yes Med Rec Note Co-signed by Attending: Coverage Notice Comment: SHANE for [facility] Last DP export: 02/06/19 3:04 p Patient Name: HARSHAD OLIVER Page [phone] at 1428 All edits/amendments must be made on the electronic document DICTATION DATE: 02/07/191426 GYNECOLOGY TEACHER: MICHAEL 02/07/191426 RPT#: [id number] DC DATE: STATUS: ADM IN [facility] [address] [place] [address] END OF REPORT
[2019-02-07] MEDS ORDERED: B-12 DOTS500 MCG PO (14:54)
[2019-02-07] MEDS ORDERED: PROMOD LIQUID P30 M1 PO (15:01)
[2019-02-07] MEDS ORDERED: ZOLOFT50 MG PO (15:03)
--- NOTE | 2019-02-07 15:26 | NUR ---
REQUESTING PRN OXYCONTIN. NO PRN PAIN MEDICAITON ON JUL. BLOOD PRESSURE 103/68. PAGE PUT IN TO DR FERNANDEZ.
--- NOTE | 2019-02-07 15:28 | NUR ---
SPOKE WITH DR FERNANDEZ WHO STATES PLACE ORDER FOR NORCO 5/325 Q4PRN. NOTIFIED OF BLOOD PRESSURE 103/68. STATES WAIT UNTIL SECOND UNIT FINISHES AND PATIENT SHOULD TOLERATE. WILL NOTIFY PATIENT AND MONITOR BLOOD PRESSURE.
--- NOTE | 2019-02-07 16:55 | NUR ---
BLOOD TRANSFUSION UNIT 2 COMPLETE. VITALS STABLE.
--- NOTE | 2019-02-07 16:57 | NUR ---
BLOOD PRESSURE 112/72. PRN NORCO AND ZOFRAN GIVEN PER REQUEST.
--- NOTE | 2019-02-07 17:39 | NUR ---
PATIENT SLEEPING. WILL CONTINUE TO MONITOR.
--- NOTE | 2019-02-07 18:47 | NUR ---
LINENS CHANGED. DRSGS CHANGED D/T SOILED. ABD DRSG CHANGED D/T LEAKING. NEW ICE WATER BROUGHT TO PATIENT. ASSISTED TO ADJUST IN BED. DENIES FURTHER NEEDS.
[2019-02-08] VITALS (10 sets, daily range): BP systolic 93–114; BP diastolic 63–77
--- NOTE | 2019-02-08 00:14 | NUR ---
PT INCONTINENT OF LOOSE STOOL. CHANGED PADS AND CLEANED PT. CHANGED DRESSINGS TO BUTTOCKS THAT WERE SOILED AND ABDOMINAL DRAIN THAT HAD LEAKED - FLUSHED DRAIN WHICH LEAKED ALL THAT WAS FLUSHED OUT AROUND DRAIN SITE. GAVE PAIN MED AND APPLE JUICE. NO RESIDUAL FROM PEG - INCREASED RATE OF FEEDING BY 10 ML/HR. FEEDING IS AT 20 ML/HR NOW. PT REPOSITIONED OFTEN. NO OTHER NEEDS. WILL CONTINUE TO MONITOR.
[2019-02-08 06:24] LABS: BASOPHILS 0.2 % (0-2); EOSINOPHILS 1.9 % (0-7); IMMATURE GRANULOCYTES 0.6 % (0-5); LYMPHOCYTES 13.4 % (15-50); MCH 29.3 pg (26.0-34.0); MCHC 32.5 g/dL (31.0-37.0); MEAN PLATELET VOLUME 9.6 fL (7.4-10.4); MONOCYTES 7.4 % (2-11); NEUTROPHILS 76.5 % (40-80); PLATELET COUNT 133 10x3/uL (130-400); RDW 17.5 % (11.5-14.5); WBC 6.3 10x3/uL (4.8-10.8)
[2019-02-08 06:25] LABS: HEMATOCRIT 31.4 % (42.0-54.0); HEMOGLOBIN 10.2 g/dL (13.5-17.5); MCV 90.2 fL (80.0-100.0); RBC 3.48 10x6/uL (4.20-6.10)
--- NOTE | 2019-02-08 06:30 | NUR ---
PT INCONTINENT OF LOOSE STOOL. CLEANED AND CHANGED PT. CHANGED BORDERED GAUZE DRESSINGS TO BUTTOCKS. EXCESSIVE DRAINAGE LEAKING AT ABDOMINAL DRAIN SITE, CHANGED DRESSING. NO OTHER NEEDS. WILL CONTINUE TO MONITOR.
[2019-02-08 06:42] LABS: ALKALINE PHOSPHATASE 221 U/L (46-116); ALT (SGPT) 14 U/L (10-68); BILIRUBIN - TOTAL 0.52 mg/dL (0.2-1.3); CALC OSMOLALITY 273 mosm/kg (275-300); CARBON DIOXIDE 19.4 mmol/L (21.0-32.0); CHLORIDE - SERUM 108 mmol/L (98-107); CREATININE - SERUM 0.8 mg/dL (0.6-1.3); GLUCOSE 101 mg/dL (74-106); MAGNESIUM - SERUM 1.3 mg/dL (1.8-2.4); PHOSPHOROUS 2.2 mg/dL (2.5-4.9); PROTEIN - SERUM 5.5 g/dL (6.4-8.2); SODIUM 138 mmol/L (136-145); UREA NITROGEN 8 mg/dL (7-18); eGFR NON AFRICAN AMERICAN > 90 mL/min (90-120)
[2019-02-08 06:43] LABS: POTASSIUM - SERUM 3.8 mmol/L (3.5-5.1)
--- NOTE | 2019-02-08 07:52 | NUR ---
RESIDUAL CHECKED RECEIVED BACK 60+ CC'S AND PT HAS BEEN VOMITING CLEAR GREEN BILE. DID NOT INCREASE RATE OF FEED, LEFT AT 20 ML/HR AND RAISED HOB TO 35 DEGREES. GAVE ZOFRAN 4MG IV PUSH FOR NAUSEA. STARTED MAG SULFATE 2G INFUSING FOR MAG 1.3 AND CALLED PHARMACY TO MIX 15mm SODIUM PHOSPHATE TO BE GIVEN IV FOR PHOS 2.2. REPORTED TO [facility] NURSE SMITH ORTIZ.
--- NOTE | 2019-02-08 08:16 | NUR ---
AWAKE AND ALERT. ORIENTED X3. NO C/O AT THIS TIME. LUNGS ARE CLEAR BILATERALLY, NO COUGH NOTED. SKIN HAS SEVERAL AREAS OF CONCERN TO BILATERAL HIPS AND COCCYX. PICC TO RIGHT UPPER ARM IS PATENT WITHOUT REDNESS AT INSERTION SITE. LEFT PORT IS PATENT WITHOUT REDNESS AT INSERTION SITE. DRAINS PATENT. DENIES NEEDS.
--- NOTE | 2019-02-08 10:00 | NUR ---
GIVEN AM MEDS VIA PEG. A/O. DENIES NEEDS. REQUESTED AND GIVEN MALLOX FOR C/O GAS. WILL MONITOR.
--- NOTE | 2019-02-08 14:00 | NUR ---
DRESSINGS CHANGED PER ORDERS. INCONTINENT OF LOOSE ORANGISH STOOL. SKIN CARE PER STAFF. LINENS CHANGED. DRAIN AND CATHETER FOR URINE FLUSHED. 120CC TO DRAIN AND 20 CC TO RUBIN. FREE FLOWED EASILY BUT CAME RIGHT BACK OUT AROUND THE URINE DRAIN SITE. WILL CONTINUE TO MONITOR.
[2019-02-08 15:26] LABS: INR 1.84 (0.85-1.17); PROTIME 20.6 SECONDS (11.6-15.0)
[2019-02-08 15:27] LABS: APTT 44.3 SECONDS (22.8-39.4)
--- NOTE | 2019-02-08 16:00 | NUR ---
10CC RESIDUAL ON PEG. RATE INCREASED TO 30 CC HOUR VIA PUMP. WILL CONTINUE TO MONITOR. HOB UP 45 DEGREES.
--- NOTE | 2019-02-08 16:25 | NUR ---
FFP UP AT THIS TIME. VSS.
--- NOTE | 2019-02-08 16:40 | NUR ---
TRANSFUSION CONTINUES WITHOUT COMPLICATIONS. VSS.
--- NOTE | 2019-02-08 17:15 | NUR ---
TRANSFUSION COMPLETED. VSS. DENIES NEEDS. VISITIOR AT BEDSIDE.
--- NOTE | 2019-02-08 20:00 | NUR ---
PT INCONTINENT OF LOOSE STOOL. PT CLEANED AND LINENS CHANGED. DRESSINGS TO BUTTOCKS SOILED AND CHANGED. NO OTHER NEEDS. WILL CONTINUE TO MONITOR.
[2019-02-09] VITALS (17 sets, daily range): BP systolic 97–120; BP diastolic 58–74
--- NOTE | 2019-02-09 04:00 | NUR ---
PT VOMITING WATERY FEEDING. GAVE ZOFRAN 4MG IV PUSH. NO OTHER NEEDS. WILL CONTINUE TO MONITOR.
--- NOTE | 2019-02-09 06:00 | NUR ---
PT INCONTINENT OF LARGE LOOSE STOOL. PT GIVEN HIBICLENS AND LINENS/GOWN CHANGED. DRESSING TO BUTTOCKS SOILED AND CHANGED. SCROTUM AND PERIAREA BLEEDING. CLEANED WITH WOUNDS CLEANSER AND PATTED DRY. ABDOMINAL DRAIN DRESSING WITH MINIMAL LEAKAGE. CHANGED OUT 4X4'S APPLIED NEW ABD PAD AND SECURED WITH TAPE. SIDDHARTH BLOOD FROM PORT AND SENT TO LAB. NO OTHER NEEDS. WILL CONTINUE TO MONITOR.
[2019-02-09 06:45] LABS: BASOPHILS 0.2 % (0-2); EOSINOPHILS 0.9 % (0-7); HEMATOCRIT 31.4 % (42.0-54.0); HEMOGLOBIN 10.1 g/dL (13.5-17.5); IMMATURE GRANULOCYTES 0.4 % (0-5); MCH 28.9 pg (26.0-34.0); MCHC 32.2 g/dL (31.0-37.0); MCV 89.7 fL (80.0-100.0); MEAN PLATELET VOLUME 10.7 fL (7.4-10.4); MONOCYTES 6.4 % (2-11); NEUTROPHILS 84.1 % (40-80); PLATELET COUNT 132 10x3/uL (130-400); RDW 17.2 % (11.5-14.5); WBC 5.3 10x3/uL (4.8-10.8)
[2019-02-09 06:55] LABS: APTT 44.3 SECONDS (22.8-39.4); CALC OSMOLALITY 277 mosm/kg (275-300); CARBON DIOXIDE 21.4 mmol/L (21.0-32.0); CHLORIDE - SERUM 108 mmol/L (98-107); CREATININE - SERUM 0.8 mg/dL (0.6-1.3); GLUCOSE 127 mg/dL (74-106); INR 1.85 (0.85-1.17); PROTIME 20.7 SECONDS (11.6-15.0); SODIUM 139 mmol/L (136-145); UREA NITROGEN 7 mg/dL (7-18); eGFR NON AFRICAN AMERICAN > 90 mL/min (90-120)
[2019-02-09 07:02] LABS: CALCIUM 6.9 mg/dL (8.5-10.1); POTASSIUM - SERUM 2.8 mmol/L (3.5-5.1)
--- NOTE | 2019-02-09 08:34 | NUR ---
AWAKE AND ALERT. ORIENTED X3. NO C/O AT THIS TIME OTHER THAN BEING COLD. GIVEN A WARMED BLANKET. LUNGS ARE CLEAR BILATERALLY, NO COUGH NOTED. SKIN IS INTACT WITHOUT REDNESS EXCEPT FOR MULTIPLE PRESSURE ULCERS IN VARIOUS STAGES. STAGE 2 TO RIGHT BUTTOCK AND STAGE 1 TO LEFT BUTTOCK. PICC TO RIGHT UPPER ARM IS PATENT WITHOUT REDNESS. LEFT PORT IS ALSO PATENT WITHOUT REDNESS. RUBIN PATENT WITH CLEAR YELLOW URINE. DRAINAGE BAG PATENT WITH CLOUDY DRAINAGE. DENIES FURTHER NEEDS.
--- NOTE | 2019-02-09 09:15 | NUR ---
FIRST UNIT FFP UP AT THIS TIME. VSS.
--- NOTE | 2019-02-09 09:30 | NUR ---
TRANSFUSION CONTINUES WITHOUT COMPLICATIONS. VSS.
--- NOTE | 2019-02-09 09:45 | NUR ---
FIRST UNIT COMPLETED. SECOND UNIT OF FFP UP AT THIS TIME. VSS.
--- NOTE | 2019-02-09 10:00 | NUR ---
TRANSFUSION CONTINUES WITHOUT COMPLICATIONS. VSS.
--- NOTE | 2019-02-09 10:15 | NUR ---
TRANSFUSION COMPLETED. VSS. NO SIGNS OF REACTIONS. OFF UNIT VIA BED FOR PROCEDURE.
--- NOTE | 2019-02-09 12:00 | NUR ---
RETURNED FROM PROCEDURE. A/O X3. VSS.
--- NOTE | 2019-02-09 18:04 | NUR ---
INCONTINENT SMALL AMOUNT OF LOOSE ORANGISH STOOL. SKIN CARE PER STAFF. LINENS CHANGED. REPOSITIONED IN BED FOR COMFORT.
--- NOTE | 2019-02-09 18:05 | NUR ---
TF AT 30 CC AN HOUR VIA PUMP. NO C/O PAIN OR NAUSEA. DENIES NEEDS.
--- NOTE | 2019-02-09 22:00 | NUR ---
PT INCONTINENT OF LARGE LIQUID STOOL. CHANGED LINEN AND CLEANED PT. PT CONTINUED HAVING LARGE AMOUNTS OF LIQUID YELLOW STOOL DURING CHANGE. SKIN OF BUTTOCKS AND SCROTUM RED AND EXCORIATED. APPLIED BOUDREUX'S BUTT PASTE TO AFFECTED AREAS. WOUND DRESSINGS ON BUTTOCKS AND SACRUM SOILED, CLEANED WITH WOUND CLEANSER AND APPLIED NEW DRESSINGS. CHANGED ABDOMINAL DRAIN DRESSING. RESIDUAL FEEDING LESS THAN 5 CC'S - INCREASED FEEDING BY 5 MLS TO BE 35 ML/HR. WILL CHECK AND INCREASE AGAIN IN 4 HOURS. PT TOLERATING SO FAR. NO OTHER NEEDS. WILL REASSESS AND CONTINUE TO MONITOR. CHANGE.
[2019-02-10 04:00] VITALS: BP 104/67
[2019-02-10 06:25] LABS: BASOPHILS 0 % (0-2); EOSINOPHILS 1.6 % (0-7); HEMATOCRIT 27.6 % (42.0-54.0); HEMOGLOBIN 8.8 g/dL (13.5-17.5); IMMATURE GRANULOCYTES 0.2 % (0-5); MCH 29.2 pg (26.0-34.0); MCHC 31.9 g/dL (31.0-37.0); MEAN PLATELET VOLUME 9.9 fL (7.4-10.4); MONOCYTES 5.4 % (2-11); NEUTROPHILS 84.8 % (40-80); PLATELET COUNT 106 10x3/uL (130-400); RBC 3.01 10x6/uL (4.20-6.10); RDW 17.2 % (11.5-14.5)
[2019-02-10 06:32] LABS: MCV 91.7 fL (80.0-100.0)
[2019-02-10 06:35] LABS: CALC OSMOLALITY 274 mosm/kg (275-300); CARBON DIOXIDE 21.8 mmol/L (21.0-32.0); CHLORIDE - SERUM 109 mmol/L (98-107); CREATININE - SERUM 0.7 mg/dL (0.6-1.3); GLUCOSE 116 mg/dL (74-106); POTASSIUM - SERUM 3.2 mmol/L (3.5-5.1); SODIUM 138 mmol/L (136-145); UREA NITROGEN 7 mg/dL (7-18); eGFR NON AFRICAN AMERICAN > 90 mL/min (90-120)
[2019-02-10 07:13] LABS: CALCIUM 6.7 mg/dL (8.5-10.1)
--- NOTE | 2019-02-10 07:20 | NUR ---
PT INCONTINENT OF LARGE YELLOW LIQUID STOOL. PT CLEANED AND LINENS CHANGED. DRESSINGS TO BUTTOCKS; COCCYX AND SACRUM CHANGED. PT REPOSITIONED AND HOB AT 30 DEGREES FOR TUBE FEEDING. NO OTHER NEEDS. REPORT GIVEN TO SHELLY VILLAGOMEZ.
--- NOTE | 2019-02-10 07:51 | NUR ---
DR. FERNANDEZ WAS PAGE AT THIS TIME FOR CL CALCUIM OF 6.7 REC'D NEW ORDERS FOR 1 ampule of calcuim gluconate.
[2019-02-10 08:43] VITALS: BP 107/75
--- NOTE | 2019-02-10 11:22 | NUR ---
I have reviewed this patient and I concur with the Shift Assessment completed by the Licensed Practical Nurse today this shift.
--- NOTE | 2019-02-10 11:33 | NUR ---
CALLED DR. FERNANDEZ ABOUT PT HAVING HICCUPS AND COULD HE HAVE SOME THORAZINE. REC'D ORDER THORAZINE 25 MG TID. PT MADE AWARE OF NEW ORDER. C/L IN REACH AT BEDSIDE.
[2019-02-10 11:53] VITALS: BP 109/65
[2019-02-10 16:55] VITALS: BP 100/56
--- NOTE | 2019-02-10 19:45 | NUR ---
PT SITTING UP IN BED WITHOUT DISTRESS, AOX4. DENIES NEEDS, ONLY COMPLAINT IS HICCUPS HAVE RETURNED. WILL GIVE ORDERED MEDS. LEFT PORT INFUSING D5LR @ 150 AND ZOFRAN DRIP @ 4.7. PT STATES NO NAUSEA. TUBE FEEDING INFUSING JEVITY 1.2 @ 50ML/HR WITH 25ML H20 FLUSH Q1H. RIGHT UPPER ARM PICC SL. SRX2, BED LOWEST POSITION, CL IN REACH. WILL CTM
[2019-02-10 20:15] VITALS: BP 119/68
[2019-02-11 00:47] VITALS: BP 124/74
[2019-02-11 05:14] VITALS: BP 108/67
[2019-02-11 05:35] LABS: BASOPHILS 0.3 % (0-2); EOSINOPHILS 1.8 % (0-7); HEMATOCRIT 26.8 % (42.0-54.0); HEMOGLOBIN 8.6 g/dL (13.5-17.5); IMMATURE GRANULOCYTES 0.3 % (0-5); LYMPHOCYTES 8.4 % (15-50); MCH 29.5 pg (26.0-34.0); MCHC 32.1 g/dL (31.0-37.0); MCV 91.8 fL (80.0-100.0); MEAN PLATELET VOLUME 10.6 fL (7.4-10.4); MONOCYTES 7.6 % (2-11); NEUTROPHILS 81.6 % (40-80); PLATELET COUNT 95 10x3/uL (130-400); RBC 2.92 10x6/uL (4.20-6.10); RDW 16.9 % (11.5-14.5)
[2019-02-11 06:21] LABS: CALC OSMOLALITY 275 mosm/kg (275-300); CHLORIDE - SERUM 108 mmol/L (98-107); GLUCOSE 130 mg/dL (74-106); MAGNESIUM - SERUM 1.6 mg/dL (1.8-2.4); PHOSPHOROUS 1.9 mg/dL (2.5-4.9); SODIUM 138 mmol/L (136-145); UREA NITROGEN 8 mg/dL (7-18)
[2019-02-11 06:31] LABS: CALCIUM 6.7 mg/dL (8.5-10.1); CREATININE - SERUM 0.9 mg/dL (0.6-1.3); eGFR NON AFRICAN AMERICAN > 90 mL/min (90-120)
[2019-02-11 08:00] LABS: PLATELET ESTIMATE DECREASED
--- NOTE | 2019-02-11 08:00 | NUR ---
LYING IN BED,WITHOUT NEEDS.CALL LIGHT IN REACH
[2019-02-11 08:37] VITALS: BP 102/60
--- NOTE | 2019-02-11 09:33 | NUR ---
Nutrition consult: Received verbal order from Dr. Franklin to change pt to bolus TF. Chart reviewed. Wt: 198# Diet: Regular as tolerated; per RN pt is not eating but is drinking a lot of fluids. Jevity 1.2 stacy infusing @ 75 ml/hr via PEG tube +BM charted To meet estimated energy needs with bolus TF will have to change TF formula to TwoCal HN to reduce the amount of formula needed during the day. RDN will start bolus TF of TwoCal HN at lunch today. Pt will need 5 cans ot TwoCal HN q 12 hours to meet 100% of estimated energy needs. Will adjust the amount of formula needed with the amount of food pt is eating. RDN will order 5 cans of TwoCal HN as follows: 1 can @ 0600, 0900, 1200, 1500, 1800 It pt eats > 50% of meals @ 0900, 1200, 1800 would not bolus. Thank you for the consult. RDN following.
[2019-02-11 11:41] VITALS: BP 104/68
[2019-02-11 15:40] VITALS: BP 112/70
--- NOTE | 2019-02-11 19:10 | NUR ---
IN BED WITH TELEVISION ON, SHOWS NO S/S OF ANY ACUTE DISTRESS, COMPLAINTS OF BEING COLD NOTED, WARM BLANKET GIVEN. ABLE TO VOICE ALL NEEDS. WILL NOTE ANY CHANGE.
[2019-02-11 20:43] VITALS: BP 103/67
--- NOTE | 2019-02-12 00:23 | NUR ---
I have reviewed this patient and I concur with the Shift Assessment completed by the Licensed Practical Nurse today this shift.
--- NOTE | 2019-02-12 00:27 | NUR ---
BUTTOCKS IS COMPLETELY EXCORIATED AND REDDENED. SCANT BLEEDING NOTED. CALMOSEPTINE APPLIED. WILL NOTE ANY CHANGE.
[2019-02-12 01:15] VITALS: BP 99/66
[2019-02-12 05:02] VITALS: BP 112/69
--- NOTE | 2019-02-12 07:10 | NUR ---
REC'D IN BED EASILY TO AROUSED WHEN NAME IS CALLED. RESP EVEN AND UNLABORED WITH NO DISTRESS NOTED. CAN EXPRESS NEEDS AND WANTS. NO C/O NOTEDOR VOICED. ASSESSMENT COMPLETED. C/L IN REACH AT BEDSIDE.
[2019-02-12 07:35] LABS: BASOPHILS 0.4 % (0-2); EOSINOPHILS 1.4 % (0-7); HEMATOCRIT 25.1 % (42.0-54.0); HEMOGLOBIN 8.1 g/dL (13.5-17.5); IMMATURE GRANULOCYTES 0.4 % (0-5); LYMPHOCYTES 10.9 % (15-50); MCH 29.7 pg (26.0-34.0); MCHC 32.3 g/dL (31.0-37.0); MCV 91.9 fL (80.0-100.0); MEAN PLATELET VOLUME 10.8 fL (7.4-10.4); MONOCYTES 5.6 % (2-11); NEUTROPHILS 81.3 % (40-80); PLATELET COUNT 83 10x3/uL (130-400); RBC 2.73 10x6/uL (4.20-6.10); RDW 16.7 % (11.5-14.5)
[2019-02-12 07:59] LABS: WBC 2.8 10x3/uL (4.8-10.8)
[2019-02-12 08:08] LABS: CALC OSMOLALITY 265 mosm/kg (275-300); CARBON DIOXIDE 17.8 mmol/L (21.0-32.0); CHLORIDE - SERUM 105 mmol/L (98-107); CREATININE - SERUM 0.8 mg/dL (0.6-1.3); GLUCOSE 137 mg/dL (74-106); MAGNESIUM - SERUM 1.4 mg/dL (1.8-2.4); PHOSPHOROUS 1.6 mg/dL (2.5-4.9); SODIUM 132 mmol/L (136-145); UREA NITROGEN 9 mg/dL (7-18); eGFR NON AFRICAN AMERICAN > 90 mL/min (90-120)
[2019-02-12 08:10] LABS: POTASSIUM - SERUM 3.5 mmol/L (3.5-5.1)
[2019-02-12 08:22] VITALS: BP 91/61
[2019-02-12 09:12] LABS: PLATELET ESTIMATE DECREASED
[2019-02-12] MEDS ORDERED: MERREM 1 GM/NS 11 G1 IV (09:29)
[2019-02-12] MEDS ORDERED: HYDROCODON-ACE1 EAC7 PO (09:30)
[2019-02-12] MEDS ORDERED: MAG-OX 400 MG400 MG PO (09:32)
[2019-02-12 11:05] VITALS: BP 104/70
--- NOTE | 2019-02-12 12:05 | MORECARE ---
CASE MANAGEMENT DISCHARGE SUMMARY PATIENT: HARSHAD OLIVER UNIT: [id number] ADM DATE: 02/06/19 AGE: 48 : 68 SEX: M ROOM/BED: D.2236 AUTHOR: KEMAR,DOC PHYSICIAN: REFERRING PHYSICIAN: LEONELA FRANKLIN MD DATE OF SERVICE: 02/12/19 Discharge Plan Patient Name: HARSHAD OLIVER Facility: [facility]:[place] : 1970 Planned Disposition: SNF w Planned Readmission Anticipated Discharge Date: Discharge Date: Expected LOS: Initial Reviewer: [email or web address] Initial Review Date: 02/06/2019 Generated: 02/12/19 1:05 pm Comments DCP- Discharge Planning Updated by [id number]: Meghan Dye on 02/12/19 11:[address] Received discharge order. I called and spoke to Flo at [facility] and clinical faxed. [facility] is here now to transport. Discharging to a skilled bed at [facility]. DCP- Discharge Planning Updated by [id number]: Meghan Dye on 02/07/19 1:[address] CM met with patient and SHANE for [facility] signed. He states Dr. Franklin thought he may be discharged on Sunday. I spoke with Flo at [facility] and they will accept back when ready for discharge, updated clinical faxed. CM will continue to follow and assist with discharge planning/needs. DCP- Discharge Planning Updated by [id number]: April Mcgowan on 02/06/19 3:[address] DC PLAN: Return to [facility] ANTICIPATED DC NEEDS: Denied known dc needs. CM met with patient to complete initial dc planning assessment. CM educated patient on the CM role and verbal consent given by patient to complete assessment. CM verified patient's address, phone number, and emergency contact phone numbers. Patient is currently in rehab @ [facility]. At discharge patient plans to return to [facility] and feels this is a safe discharge. Patient denied further known discharge needs at this time. Patient reports [facility] will transport him home at time of discharge.CM will continue to follow and will assist as needed with dc plans/needs. April Mcgowan RN, [facility] DCPIA - Discharge Planning Initial Assessment Updated by [id number]: April Mcgowan on 02/06/19 4:00 pm * Is the patient Alert and Oriented? Yes * PCP Dr. Mesha Anaya * Pharmacy [facility] * Preadmission Environment Residential Facility * Facility Name [facility] * ADLs Partial Dependent * Partial ADLs (Assistance needed) Ambulation Bathing Toileting Transfers * Equipment Greyson Lift Wheelchair * List name and contact numbers for known caregivers / representatives who currently or will assist patient after discharge: Marilou hernandez - [phone] * Verbal permission to speak to the caregivers and representatives has been obtained from the patient. Yes * Additional services required to return to the preadmission environment? No * Can the patient safely return to the preadmission environment? Yes * Has this patient been hospitalized within the prior 30 days at any hospital? Yes Coverage Notice Reviewer: [email or web address] Eulalio Dye Notice Issued Date-Time: 02/07/2019 14:13 Notice Type: Patient Choice Letter Notice Delivered To: Patient Relationship to Patient: Self Kitchen Helper Name: Delivery Method: HAND - Hand Delivered Bindu Days: Prior Verbal Notification: Recipient Understood Notice: Yes Recipient Signature: Yes Med Rec Note Co-signed by Attending: Coverage Notice Comment: SHANE for [facility] Reviewer: [email or web address] Dye Notice Issued Date-Time: 02/13/2019 11:55 Notice Type: IM Discharge Notice Notice Delivered To: Patient Relationship to Patient: Self Kitchen Helper Name: Delivery Method: HAND - Hand Delivered Bindu Days: Prior Verbal Notification: Recipient Understood Notice: Yes Recipient Signature: Yes Med Rec Note Co-signed by Attending: Coverage Notice Comment: IMM explained, signed, given, copy placed in MR Last DP export: 02/07/19 1:28 p Patient Name: HARSHAD OLIVER Page [id number] at 1205 All edits/amendments must be made on the electronic document DICTATION DATE: 02/12/19 1205 LAYDOWN MACHINE OPERATOR: MICHAEL 02/12/19 1205 RPT#: [id number] DC DATE: STATUS: ADM IN [facility] [address] [facility], [facility] END OF REPORT
--- NOTE | 2019-02-12 12:55 | NUR ---
DC BACK TO [facility] AT THIS TIME VIA FACILITY [facility]AN. AWAKE AND ALERT. RESP EVEN AND UNLABORED WITH NO DISTRESS NOTED. PORT WAS DEASSESSED AT THIS TIME VIA RN. STABLE CONDITION UPON DEPARTURE.
--- NOTE | 2019-02-14 09:48 | MORECARE ---
CASE MANAGEMENT DISCHARGE SUMMARY PATIENT: HARSHAD OLIEVR UNIT: [id number] ADM DATE: 02/06/19 AGE: 48 : 68 SEX: M ROOM/BED: D.2236 AUTHOR: KEMAR,DOC PHYSICIAN: REFERRING PHYSICIAN: LEONELA FRANKLIN MD DATE OF SERVICE: 02/14/19 Discharge Plan Patient Name: HARSHAD OLIVER Facility: [facility]:[place] : 1970 Planned Disposition: SNF w Planned Readmission Anticipated Discharge Date: Discharge Date: 02/12/2019 Expected LOS: 0 Initial Reviewer: [email or web address] Initial Review Date: 02/06/2019 Generated: 02/14/19 10:47 am Comments DCP- Discharge Planning Updated by [email or web address]: Meghan Dye on 02/12/19 11:[address] Received discharge order. I called and spoke to Flo at [facility] and clinical faxed. [facility] is here now to transport. Discharging to a skilled bed at [facility]. DCP- Discharge Planning Updated by [email or web address]: Meghan Dye on 02/07/19 1:[address] CM met with patient and SHANE for [facility] signed. He states Dr. Franklin thought he may be discharged on Sunday. I spoke with Flo at [facility] and they will accept back when ready for discharge, updated clinical faxed. CM will continue to follow and assist with discharge planning/needs. DCP- Discharge Planning Updated by [id number]: April Mcgowan on 02/06/19 3:[address] DC PLAN: Return to [facility] Rehab ANTICIPATED DC NEEDS: Denied known dc needs. CM met with patient to complete initial dc planning assessment. CM educated patient on the CM role and verbal consent given by patient to complete assessment. CM verified patient's address, phone number, and emergency contact phone numbers. Patient is currently in rehab @ [facility]. At discharge patient plans to return to [facility] and feels this is a safe discharge. Patient denied further known discharge needs at this time. Patient reports [facility] will transport him home at time of discharge.CM will continue to follow and will assist as needed with dc plans/needs. April Mcgowan RN, [facility] DCPIA - Discharge Planning Initial Assessment Updated by [email or web address]: April Mcgowan on 02/06/19 4:00 pm * Is the patient Alert and Oriented? Yes * PCP Dr. Mesha Anaya * Pharmacy [facility] * Preadmission Environment [facility] * Facility Name [facility] * ADLs Partial Dependent * Partial ADLs (Assistance needed) Ambulation Bathing Toileting Transfers * Equipment Greyson Lift Wheelchair * List name and contact numbers for known caregivers / representatives who currently or will assist patient after discharge: Marilou hernandez - [phone] * Verbal permission to speak to the caregivers and representatives has been obtained from the patient. Yes * Additional services required to return to the preadmission environment? No * Can the patient safely return to the preadmission environment? Yes * Has this patient been hospitalized within the prior 30 days at any hospital? Yes Coverage Notice Reviewer: [email or web address] Dye Notice Issued Date-Time: 02/07/2019 14:13 Notice Type: Patient Choice Letter Notice Delivered To: Patient Relationship to Patient: Self Mammography Technician Name: Delivery Method: HAND - Hand Delivered Bindu Days: Prior Verbal Notification: Recipient Understood Notice: Yes Recipient Signature: Yes Med Rec Note Co-signed by Attending: Coverage Notice Comment: SHANE for [facility] Reviewer: [id number] Dye Notice Issued Date-Time: 02/13/2019 11:55 Notice Type: IM Discharge Notice Notice Delivered To: Patient Relationship to Patient: Self Mammography Technician Name: Delivery Method: HAND - Hand Delivered Bindu Days: Prior Verbal Notification: Recipient Understood Notice: Yes Recipient Signature: Yes Med Rec Note Co-signed by Attending: Coverage Notice Comment: IMM explained, signed, given, copy placed in MR Last DP export: 02/12/19 11:05 a Patient Name: HARSHAD OLIVER Page [phone] at 0948 All edits/amendments must be made on the electronic document DICTATION DATE: 02/14/19946 FRUIT OR NUT FARMWORKER: MICHAEL 02/14/19946 RPT#: [id number] DC DATE:10/09/19 STATUS: DIS IN [facility] [address] [place] [address] END OF REPORT
--- NOTE | 2019-02-27 13:49 | OP ---
PATIENT NAME: HARSHAD OLIVER MEDICAL RECORD: [id number] :68 LOCATION:D.MS [id number] ADMISSION DATE:02/06/19 SURGEON: EULALIO BAILEY MD DATE OF OPERATION: 02/07/2019 PREOPERATIVE DIAGNOSES: 1. Anorexia. 2. Severe protein-calorie malnutrition. 3. Weight loss. 4. Metastatic bladder cancer. 5. Paraplegic. POSTOPERATIVE DIAGNOSES: 1. Anorexia. 2. Severe protein-calorie malnutrition. 3. Weight loss. 4. Metastatic bladder cancer. 5. Paraplegic. PROCEDURE: PEG tube placement. SURGEON: Eulalio Bailey MD REPORT OF PROCEDURE: The patient's abdomen was prepped and draped. An Olympus endoscope was advanced through the mouth and esophagus, and we insufflated the stomach. An area was found on the antrum of the stomach to house our PEG tube. We inserted 5 cc of 1% lidocaine into the surrounding tissues and then made a small incision with an 11-blade in the left subcostal region. An Angiocath needle was inserted into the gastric lumen and a wire was advanced through this. This wire was grasped with an Endosnare and these structures were pulled out through the mouth and esophagus. We affixed the PEG tube to the wire and these were pulled out through the mouth and esophagus and into position in the stomach. The resting length was 4 cm at the skin level. We then reinserted the endoscope and can see the PEG tube was in good position with no sign of any bleeding. COMPLICATIONS: None. CONDITION: Stable. ANESTHESIA: TIVA. BLOOD LOSS: Minimal. TRANSINT:[id number] Voice Confirmation ID: [id number] DOCUMENT ID: [id number] EULALIO BAILEY MD at 1349 CC: [id number] DICTATION DATE: 02/07/19 0850 CREDIT CHARGE AUTHORIZER: 02/07/19 1300 DIS IN 02/12/19 [place] [address]
== END 2019-02-12 12:55 | DRG 640 ==
LOC: D.ER 10:20 → D.MS 14:20
PROVIDERS: Emergency Medicine; General Practice; Surgery; ADMIT Family Medicine; ATTEND Family Medicine
PROC: 0DH63UZ Insertion of Feeding Device into Stomach, Percutaneous Approach (ICD-10-PCS; principal; 2019-02-07 08:15)
PROC: 0R9 Upper Joints, Drainage (ICD-10-PCS; 2019-02-09)
DX: E43 Unspecified severe protein-calorie malnutrition (principal); L89.323 Pressure ulcer of left buttock, stage 3; G82.20 Paraplegia, unspecified; N39.0 Urinary tract infection, site not specified; C78.4 Secondary malignant neoplasm of small intestine; M46.24 Osteomyelitis of vertebra, thoracic region; E86.1 Hypovolemia; R63.0 Anorexia; E11.69 Type 2 diabetes mellitus with other specified complication; D50.8 Other iron deficiency anemias; E03.9 Hypothyroidism, unspecified; E88.09 Other disorders of plasma-protein metabolism, not elsewhere classified; K21.9 Gastro-esophageal reflux disease without esophagitis; I95.9 Hypotension, unspecified; C67.9 Malignant neoplasm of bladder, unspecified; E83.42 Hypomagnesemia; B96.1 Klebsiella pneumoniae [K. pneumoniae] as the cause of diseases classified elsewhere; B96.5 Pseudomonas (aeruginosa) (mallei) (pseudomallei) as the cause of diseases classified elsewhere; L89.312 Pressure ulcer of right buttock, stage 2; L89.150 Pressure ulcer of sacral region, unstageable; S31.30XA Unspecified open wound of scrotum and testes, initial encounter; Z68.25 Body mass index [BMI] 25.0-25.9, adult

== ENCOUNTER 2019-02-28 07:01 | Outpatient (CLI) | payer MEDICARE ==
[~2019-02-28] VITALS: Ht 188 cm; Wt 96.4 kg
[~2019-02-28 07:01] MED LIST changes: +B-12 DOTS500 MCG PO; +HYDROCODON-ACE1 EAC7 PO; +MAG-OX 400 MG400 MG PO; +MERREM 1 GM/NS 11 G1 IV; +ZOLOFT50 MG PO
[2019-02-28 08:35] VITALS: Ht 188 cm; Wt 96.4 kg
--- NOTE | 2019-02-28 09:30 | NUR ---
VITAL SIGNS STABLE, PRBC'S TRANSFUSING AT 75 CC/HR TO RIGHT PICC LINE. RATE INCREASED AT THIS TIME TO 250 CC/HR. PATIENT DENIES UNTOWARD SIGNS OR SYMPTOMS, PATIENT INSTRUCTED TO CALL NURSE IF EXPERIENCES UNTOWARD SIGNS OR SYMPTOMS
--- NOTE | 2019-02-28 12:50 | NUR ---
AWAITING TRANSPORT VAN FROM [facility], PATIENT STATES HE HAS TALKED TO TRANSPORTATION PERSON ON THE PHONE AND SOMEONE WILL BE HERE SOON. PATIENT WITHOUT SIGNS OR SYMPTOMS OF TRANSFUSION REACTION, AIMEE DENIES NEEDS OR COMPLAINTS
--- NOTE | 2019-02-28 13:30 | NUR ---
PATIENT CONTINUES AWAITING TRANSPORT VAN FROM [facility], LYING IN BED, AWAKE, ALERT, WITHOUT COMPLAINTS
--- NOTE | 2019-02-28 15:10 | NUR ---
CALL PLACED TO [facility], SUPERVISOR [employer] STATES THAT SOMEONE WILL BE HERE IN ABOUT 20-30 MINTES
--- NOTE | 2019-02-28 16:00 | NUR ---
VOICE STUDIES DIRECTOR ARRIVES FROM [facility] AND TRANSFERS PATIENT FROM BED TO WHEELCHAIR AND TRANSPORTS PATIENT OFF DEPARTMENT
== END 2019-02-28 16:00 ==
LOC: D.OPS 07:01
PROVIDERS: ATTEND Legal Medicine
DX: E87.5 Hyperkalemia (principal); D64.9 Anemia, unspecified

== ENCOUNTER 2019-04-04 18:18 | Inpatient (IN) | payer MEDICARE ==
[~2019-04-04] VITALS: Ht 188 cm; Wt 96.2 kg
--- NOTE | 2019-04-04 18:35 | NUR ---
PT ARRIVED ON UNIT VIA STRETCHER ESCORTED BY ER STAFF AND FAMILY MEMBER. POSITIONED IN BED FOR COMFORT AND ORIENTED TO ROOM AND CALL LIGHT.
[2019-04-04 20:00] VITALS: BP 98/73
--- NOTE | 2019-04-04 20:15 | NUR ---
PAGED Oral CATES APN TO GO OVER HOME MEDICATIONS. EXPLAINED THAT PT'S LIST DIFFERED SOME FROM ADMIT ORDERS...RECEIVED ORDER TO CHANGED PER HOME MED LIST.
--- NOTE | 2019-04-04 20:20 | NUR ---
ACCESSED LEFT INFUSAPORT USING 19 GUAGE 1" PADILLA NEEDED USING STERILE TECHNIQUE. SIDDHARTH BLOOD FROM PORT FOR ORDERED LABS. FLUSHED AND CONNECTED TO KVO IV FLUIDS.
[2019-04-04 20:23] LABS: BASOPHILS 0.2 % (0-2); EOSINOPHILS 0.6 % (0-7); HEMATOCRIT 29.7 % (42.0-54.0); HEMOGLOBIN 9.3 g/dL (13.5-17.5); IMMATURE GRANULOCYTES 0.5 % (0-5); LYMPHOCYTES 8.6 % (15-50); MCH 30.2 pg (26.0-34.0); MCHC 31.3 g/dL (31.0-37.0); MCV 96.4 fL (80.0-100.0); MEAN PLATELET VOLUME 9.3 fL (7.4-10.4); MONOCYTES 8.6 % (2-11); NEUTROPHILS 81.5 % (40-80); RBC 3.08 10x6/uL (4.20-6.10); WBC 11.4 10x3/uL (4.8-10.8)
[2019-04-04 20:36] LABS: ALBUMIN 1.4 g/dL (3.4-5.0); ALKALINE PHOSPHATASE 224 U/L (46-116); ALT (SGPT) 18 U/L (10-68); BILIRUBIN - TOTAL 0.32 mg/dL (0.2-1.3); CALC OSMOLALITY 264 mosm/kg (275-300); CALCIUM 8.1 mg/dL (8.5-10.1); CHLORIDE - SERUM 101 mmol/L (98-107); CREATININE - SERUM 0.7 mg/dL (0.6-1.3); POTASSIUM - SERUM 3.7 mmol/L (3.5-5.1); PROTEIN - SERUM 7.6 g/dL (6.4-8.2); SODIUM 132 mmol/L (136-145); UREA NITROGEN 16 mg/dL (7-18); eGFR NON AFRICAN AMERICAN > 90 mL/min (90-120)
[2019-04-04 20:37] LABS: GLUCOSE 88 mg/dL (74-106)
[2019-04-04 20:53] LABS: PLATELET COUNT 321 10x3/uL (130-400)
--- NOTE | 2019-04-04 21:16 | NUR ---
HS MEDICATIONS GIVEN TO INCLUDE OXYCODONE 20 MG PT PER PT REQUEST. ALL PO MEDS GIVEN VIA PEG TUBE. FLUSHED AFTER MEDS.
--- NOTE | 2019-04-04 21:45 | NUR ---
CHANGED DRESSING AROUND SUPRAPUBIC CATH THAT WAS SOAKED WITH URINE.
[2019-04-04 22:35] VITALS: BP 98/73; BMI 27.2
--- NOTE | 2019-04-04 22:51 | NUR ---
ADMISSION ASSESSMENT AND HISTORY COMPLETE.
[2019-04-04] MEDS ORDERED: POTASSIUM CHLORIDE PT (23:33)
[2019-04-04] MEDS ORDERED: BENADRYL25 MG PT (23:34)
[2019-04-04] MEDS ORDERED: THORAZINE25 MG PO (23:35)
[2019-04-04] MEDS ORDERED: MARINOL5 MG PO (23:37)
[2019-04-04] MEDS ORDERED: OXYCODONE HCL E20 MG PO (23:39)
[2019-04-05] VITALS: BP 101/62
[2019-04-05 04:00] VITALS: BP 93/57
[2019-04-05 08:01] VITALS: BP 102/60
--- NOTE | 2019-04-05 10:04 | NUR ---
RESTING IN BED, NO DISTRESS NOTED, 2 RUBIN BAGS TO SIDE OF BED, IV INFUSING PER PORT, CONT TO MONITOR
[2019-04-05 10:43] VITALS: Ht 188 cm; Wt 96.2 kg
[2019-04-05 11:58] VITALS: BP 99/60
[2019-04-05 16:56] VITALS: BP 110/55
[2019-04-05 19:30] VITALS: BP 97/60
[2019-04-06 00:30] VITALS: BP 98/56
[2019-04-06 04:30] VITALS: BP 104/60
--- NOTE | 2019-04-06 04:56 | NUR ---
PATIENT RESTING IN BED WITH NO NEEDS , NO S/S OF DISTRESS. CALL LIGHT AND WATER IN REACH. PEG -TUB IN PLACE, DRESSING CDI. SUPER PUB CATH AND RUBIN CATH IN PLACE AND PATEN. IV TO LEFT CHEST IMPLANTED PORT. WITH NS AT 30ML/HE, NO REDNESS NO C/O PAIN AT SITE.
[2019-04-06 05:38] LABS: BASOPHILS 0.4 % (0-2); HEMOGLOBIN 7.9 g/dL (13.5-17.5); LYMPHOCYTES 10.3 % (15-50); MCH 30.4 pg (26.0-34.0); MCHC 31.6 g/dL (31.0-37.0); MCV 96.2 fL (80.0-100.0); MEAN PLATELET VOLUME 9.6 fL (7.4-10.4); MONOCYTES 8.5 % (2-11); NEUTROPHILS 76.8 % (40-80); PLATELET COUNT 272 10x3/uL (130-400); RDW 15.7 % (11.5-14.5)
[2019-04-06 05:58] LABS: CALCIUM 7.3 mg/dL (8.5-10.1); CARBON DIOXIDE 21.6 mmol/L (21.0-32.0); CHLORIDE - SERUM 100 mmol/L (98-107); POTASSIUM - SERUM 3.2 mmol/L (3.5-5.1); SODIUM 131 mmol/L (136-145); UREA NITROGEN 15 mg/dL (7-18)
[2019-04-06 06:01] LABS: CALC OSMOLALITY 261 mosm/kg (275-300); CREATININE - SERUM 0.9 mg/dL (0.6-1.3); eGFR NON AFRICAN AMERICAN > 90 mL/min (90-120)
[2019-04-06 06:02] LABS: GLUCOSE 70 mg/dL (74-106)
--- NOTE | 2019-04-06 06:49 | NUR ---
CALL FROM LAB WITH GLUCOSE OF 70 GAVE SNACK OF GRAM CRAKERS AND JUICE RECHECK WAS 103
[2019-04-06 08:40] VITALS: BP 99/58
--- NOTE | 2019-04-06 10:11 | NUR ---
RESTING IN BED, NO DISTRESS NOTED, IV INFUSING PER PORT, FOLEYS REMAIN IN PLACE X2, CONT TO MONITOR
[2019-04-06 13:49] VITALS: BP 91/58
--- NOTE | 2019-04-06 14:36 | MORECARE ---
CASE MANAGEMENT DISCHARGE SUMMARY PATIENT: HARSHAD OLIVER UNIT: [id number] ADM DATE: 04/04/19 AGE: 49 : 68 SEX: M ROOM/BED: D.2202 AUTHOR: PEDRO REINOSO PHYSICIAN: REFERRING PHYSICIAN: AYSHA SEGUNDO MD DATE OF SERVICE: 04/06/19 Discharge Plan Patient Name: HARSHAD OLIVER Facility: [facility]:[place] : 1970 Planned Disposition: Home Anticipated Discharge Date: Discharge Date: Expected LOS: Initial Reviewer: [email or web address] Initial Review Date: 04/06/2019 Generated: 04/06/19 3:35 pm DCPIA - Discharge Planning Initial Assessment Updated by [email or web address]: Tiffanie Martinez on 04/06/19 2:34 pm * Is the patient Alert and Oriented? Yes * PCP TEJADA * [facility] * Preadmission Environment Home with Family * ADLs Independent * Other Equipment LIFT, HB, WC, ETC * Community resources currently utilized None * Additional services required to return to the preadmission environment? No * Can the patient safely return to the preadmission environment? Yes * Has this patient been hospitalized within the prior 30 days at any hospital? No Patient Name: HARSHAD OLIVER Page [phone] at 1436 All edits/amendments must be made on the electronic document DICTATION DATE: 04/06/19 1435 MANAGER RESPIRATORY: MICHAEL 04/06/19 1435 RPT#: [id number] DC DATE: STATUS: ADM IN [facility] [address] [place] [address] END OF REPORT
--- NOTE | 2019-04-06 14:43 | MORECARE ---
CASE MANAGEMENT DISCHARGE SUMMARY PATIENT: HARSHAD OLIVER UNIT: [id number] ADM DATE: 04/04/19 AGE: 49 : 68 SEX: M ROOM/BED: D.2202 AUTHOR: PEDRO REINOSO PHYSICIAN: REFERRING PHYSICIAN: AYSHA SEGUNDO MD DATE OF SERVICE: 04/06/19 Discharge Plan Patient Name: HARSHAD OLIVER Facility: [facility]:[place] : 1970 Planned Disposition: Home Anticipated Discharge Date: Discharge Date: Expected LOS: Initial Reviewer: [email or web address] Initial Review Date: 04/06/2019 Generated: 04/06/19 3:43 pm Comments DCP- Discharge Planning Updated by [email or web address]: Tiffanie Martinez on 04/06/19 1:[address] Patient Name: HARSHAD OLIVER Admission Status: Elective Accout number: [id number] Admission Date: 04-04-2019 : 1970 Admission Diagnosis: Attending: KSENIA Current LOS: 2 Anticipated DC Date: Planned Disposition: Home Primary Insurance: MEDICARE A & B Discharge Planning Comments: CM met with patient at bedside after explaining CM role and obtaining verbal consent. CM discussed availability / needs of home health, REHAB and medical equipment. PATIENT DENIES ANY DISCHARGE NEEDS. STATES HAS EQUIPMENT AT HOME. DOESN'T WANT HH OR REHAB. PLANS TO RETURN HOME AFTER APPROX 10 DAYS IV ABX. CM TO FOLLOW AND ASSIST. Creative Arts Therapist: Tiffanie Martinez DCPIA - Discharge Planning Initial Assessment Updated by [email or web address]: Tiffanie Martinez on 04/06/19 2:34 pm * Is the patient Alert and Oriented? Yes * PCP TEJADA * [facility] * Preadmission Environment Home with Family * ADLs Independent * Other Equipment LIFT, HB, WC, ETC * Community resources currently utilized None * Additional services required to return to the preadmission environment? No * Can the patient safely return to the preadmission environment? Yes * Has this patient been hospitalized within the prior 30 days at any hospital? No Last DP export: 04/06/19 1:36 p Patient Name: HARSHAD OLIVER Page [phone] at 1443 All edits/amendments must be made on the electronic document DICTATION DATE: 04/06/191442 OPERATING ROOM NURSE: MICHAEL 04/06/191442 RPT#: [id number] DC DATE: STATUS: ADM IN [facility] [address] [place] [address] END OF REPORT
--- NOTE | 2019-04-06 15:57 | NUR ---
1525 BLOOD INFUSION STARTED, CONT TO MONITOR FOR REACTION
[2019-04-06 16:54] VITALS: BP 99/62
[2019-04-06 19:30] VITALS: BP 100/59
--- NOTE | 2019-04-06 19:46 | NUR ---
BLOOD COMPLETED, MIHIR WELL, DRESSING CHANGED TO BUTTOCKS PER
[2019-04-07] VITALS (8 sets, daily range): BP systolic 94–108; BP diastolic 55–66
--- NOTE | 2019-04-07 02:49 | NUR ---
ALERT AND ORENTED ABLE TO VOICE NEEDS AND WANS TO STAFF. WATER AND CALL LIGHT IN REACH. IV IN PORT TO LEFT CHEST IN PLACE AND PATEN, WITH NS AT [address] WIOTH YELLOW URIN TO BAG, SUPRA PUBIC CATH IN PLACE WITH LEAKING NOTED. PEG TUB IN TACT TO ABD. DRESSING INTACT TO BOTTOM. SCD'S ON /
[2019-04-07 04:48] LABS: BASOPHILS 0.2 % (0-2); EOSINOPHILS 4.2 % (0-7); HEMATOCRIT 28.7 % (42.0-54.0); HEMOGLOBIN 9.3 g/dL (13.5-17.5); IMMATURE GRANULOCYTES 0.9 % (0-5); MCH 30.3 pg (26.0-34.0); MCHC 32.4 g/dL (31.0-37.0); MEAN PLATELET VOLUME 9.1 fL (7.4-10.4); MONOCYTES 8.8 % (2-11); NEUTROPHILS 68.9 % (40-80); PLATELET COUNT 245 10x3/uL (130-400); RBC 3.07 10x6/uL (4.20-6.10); RDW 17.2 % (11.5-14.5); WBC 4.3 10x3/uL (4.8-10.8)
[2019-04-07 04:55] LABS: MCV 93.5 fL (80.0-100.0)
[2019-04-07 04:57] LABS: CALCIUM 7.1 mg/dL (8.5-10.1); CARBON DIOXIDE 22.3 mmol/L (21.0-32.0); CHLORIDE - SERUM 101 mmol/L (98-107); GLUCOSE 75 mg/dL (74-106); SODIUM 132 mmol/L (136-145); eGFR NON AFRICAN AMERICAN 84 mL/min (90-120)
[2019-04-07 05:02] LABS: CALC OSMOLALITY 262 mosm/kg (275-300); POTASSIUM - SERUM 2.8 mmol/L (3.5-5.1); UREA NITROGEN 11 mg/dL (7-18)
--- NOTE | 2019-04-07 06:42 | NUR ---
LAB CALLED POTASSIUM OF 2.8 CALL TO WELDER MANUFA[employer] Chrystal CATES APN RETRUND WITH NEW ORDER FOR ELCTROLITE PROTOCOL AND FLOOW.
--- NOTE | 2019-04-07 12:22 | NUR ---
Nutrition consult: Received consult from Dr. Vance to begin bolus TF 2/2 pt with very poor po intake. PEG tube in place and being used for medication at this time. Labs reviewed Wt: 211# Will order TwoCal HN 4 cans per day as follows: 1 can bolused @ 0800, 1200, 1600, 2000 with a 50 ml flush before/after each bolus. HOB > 30 degrees during bolus and for 30 minutes after bolus. Order entered. When/if pts po intake improves would only bolus if po intake is < 60% of meals. RDN following.
--- NOTE | 2019-04-07 20:00 | NUR ---
ALERT RESTING IN BED, DENIES PAIN OR NEEDS AT THIS TIME, SEE SHIFT ASSESSMENT, RUBIN TO GRAVITY DRAINAGE, ALSO HAS SUPRAPUBIC CATH TO GRAVITY DRAINAGE, CALL MAXINE BARTON, INCONTIENT OF LARGE AMOUNT LIQUID STOOL PADS GOWN AND LINENS CHANGED CALL LIGHT IN REACH
--- NOTE | 2019-04-07 20:30 | NUR ---
CALL PLACED TO DR SEGUNDO ANSWERING SERVICE. WAITING ON A CALL BACK ABOUT PATIENT LOW URINE OUTPUT
--- NOTE | 2019-04-07 21:11 | NUR ---
Oral CATES APN RESPONDED TO CALL I PLACED TO DR SEGUNDO OFFICE. INFORMED ME TO IRRIGATE THE RUBIN. WILL INFORM Brayan DAWSON RN.
[2019-04-08 01:34] VITALS: BP 90/52
--- NOTE | 2019-04-08 04:48 | NUR ---
CONTINUES TO HAVE VERY LITTLE URINE IN BAGS, DRESSING TO SUPRAPUBIC CATH SATURATED WELL PAD UNDER PT, PADS CHANGED AT THIS TIME WELL DRESSING TO SUPRAPUBIC CATH, REQUESTING PAIN MEDS BUT BP 88/52 INSTRUCTED WAS JUST TO LOW FOR PAIN MEDS AT THIS TIME, HOB LOWERED WILL MONITOR
[2019-04-08 06:01] VITALS: BP 88/52
[2019-04-08 07:17] LABS: BASOPHILS 0.2 % (0-2); EOSINOPHILS 4.5 % (0-7); HEMATOCRIT 30.5 % (42.0-54.0); HEMOGLOBIN 9.8 g/dL (13.5-17.5); IMMATURE GRANULOCYTES 0.8 % (0-5); LYMPHOCYTES 16.7 % (15-50); MCH 29.3 pg (26.0-34.0); MCHC 32.1 g/dL (31.0-37.0); MEAN PLATELET VOLUME 9.6 fL (7.4-10.4); MONOCYTES 7.1 % (2-11); NEUTROPHILS 70.7 % (40-80); PLATELET COUNT 228 10x3/uL (130-400); RBC 3.34 10x6/uL (4.20-6.10); RDW 18.3 % (11.5-14.5)
[2019-04-08 07:19] LABS: MCV 91.3 fL (80.0-100.0); WBC 6.6 10x3/uL (4.8-10.8)
[2019-04-08 07:28] LABS: CALCIUM 7.3 mg/dL (8.5-10.1); CARBON DIOXIDE 18.3 mmol/L (21.0-32.0); CHLORIDE - SERUM 103 mmol/L (98-107); SODIUM 134 mmol/L (136-145); UREA NITROGEN 9 mg/dL (7-18); eGFR NON AFRICAN AMERICAN 84 mL/min (90-120)
[2019-04-08 07:50] LABS: CALC OSMOLALITY 264 mosm/kg (275-300)
[2019-04-08 07:51] LABS: GLUCOSE 66 mg/dL (74-106); POTASSIUM - SERUM 2.9 mmol/L (3.5-5.1)
[2019-04-08 08:31] VITALS: BP 84/54
--- NOTE | 2019-04-08 13:00 | NUR ---
BOLUS FEED COMPLETE. HOB AT 30 DEGREES. NO OTHER NEEDS AT THIS TIME.
[2019-04-08 13:36] VITALS: BP 89/54
--- NOTE | 2019-04-08 13:36 | NUR ---
PT REPORTING NAUSEA. ZOFRAN GIVEN PER ORDERS, WILL MONITOR.
--- NOTE | 2019-04-08 15:22 | NUR ---
DRESSING CHANGE TO PRESSURE ULCER ON LEFT BUTTOCK, USED WET TO DRY KERLIX. APPLIED MEPILEX TO BILAT HIPS, BILAT LATERAL KNEES, BILAT LATERAL ANKLES, RIGHT GREAT TOE, RIGHT MEDIAL ROBERSON.
[2019-04-08 17:27] VITALS: BP 95/58
[2019-04-08 19:30] VITALS: BP 93/58
[2019-04-09 00:30] VITALS: BP 94/55
[2019-04-09 05:00] VITALS: BP 102/60
[2019-04-09 08:11] VITALS: BP 88/57
[2019-04-09 09:04] LABS: CALCIUM 7.4 mg/dL (8.5-10.1); CARBON DIOXIDE 20.7 mmol/L (21.0-32.0); CHLORIDE - SERUM 107 mmol/L (98-107); POTASSIUM - SERUM 3.2 mmol/L (3.5-5.1); SODIUM 135 mmol/L (136-145); UREA NITROGEN 9 mg/dL (7-18)
[2019-04-09 09:05] LABS: CALC OSMOLALITY 266 mosm/kg (275-300); CREATININE - SERUM 0.7 mg/dL (0.6-1.3); GLUCOSE 64 mg/dL (74-106)
[2019-04-09 09:06] LABS: eGFR NON AFRICAN AMERICAN > 90 mL/min (90-120)
[2019-04-09 09:55] LABS: HEMATOCRIT 29.9 % (42.0-54.0); LYMPHOCYTES 13.3 % (15-50); MCH 30.3 pg (26.0-34.0); MCHC 33.4 g/dL (31.0-37.0); MCV 90.6 fL (80.0-100.0); NEUTROPHILS 74.3 % (40-80); PLATELET COUNT 189 10x3/uL (130-400); WBC 5.5 10x3/uL (4.8-10.8)
[2019-04-09 12:30] VITALS: BP 98/66
--- NOTE | 2019-04-09 14:00 | NUR ---
Many of pts wounds have healed since his last visit. Sacral unstageable pressure injury has slightly improved (depth). It now measures 7cm x 4cm x 5cm. Wound bed is pink and there is no odor. There is a moderate serous drainage. Left buttocks has a healing stage 3 measuring 3cm x 3cm x 0.3cm. Left lateral knee is a healing stage 2 0.2cm x 0.2cm and left lateral ankle a healing stage 3 measuring 3cm x 3cm. Bilateral heels are blanchable red. Sacral wound is being packed with kerlix moistened with saline. All other wounds are being covered with mepilex for protection. Wound care continues to monitor.
[2019-04-09 17:10] VITALS: BP 100/66
--- NOTE | 2019-04-09 18:00 | NUR ---
PT NOT WANTING DINNER TRAY AT THIS TIME.
--- NOTE | 2019-04-09 20:00 | NUR ---
ALERT RESTING IN BED, INCONTIENT OF LIQUID STOOL BED CHANGED, DRESSING TO RIGHT HIP AND SUPRAPUBIC CATH CHANGED, SEE SEE SHIFT ASSESSMENT, BOLUS FEEDING GIVEN HOB ELEVATED AT 30 DEGREEES, MEDICATED FOR PAIN, CALL LIGHT IN REACH, WILL MONITOR
--- NOTE | 2019-04-09 21:00 | NUR ---
C/O NAUSEA VOMITING, ZOFRAN GIVEN PRIOR TO BOLUS FEEDING
[2019-04-09 21:57] VITALS: BP 98/60
[2019-04-10 02:42] VITALS: BP 90/54
[2019-04-10 06:49] VITALS: BP 98/58
[2019-04-10 07:12] LABS: CALC OSMOLALITY 274 mosm/kg (275-300); CARBON DIOXIDE 18.6 mmol/L (21.0-32.0); CHLORIDE - SERUM 109 mmol/L (98-107); CREATININE - SERUM 0.8 mg/dL (0.6-1.3); GLUCOSE 79 mg/dL (74-106); POTASSIUM - SERUM 3.2 mmol/L (3.5-5.1); SODIUM 139 mmol/L (136-145); UREA NITROGEN 8 mg/dL (7-18); eGFR NON AFRICAN AMERICAN > 90 mL/min (90-120)
[2019-04-10 08:18] LABS: HEMATOCRIT 29.5 % (42.0-54.0); HEMOGLOBIN 9.9 g/dL (13.5-17.5); LYMPHOCYTES 11.2 % (15-50); MCH 30.7 pg (26.0-34.0); MCHC 33.6 g/dL (31.0-37.0); MCV 91.3 fL (80.0-100.0); MEAN PLATELET VOLUME 9.1 fL (7.4-10.4); NEUTROPHILS 80.1 % (40-80); PLATELET COUNT 170 10x3/uL (130-400); RBC 3.23 10x6/uL (4.20-6.10); RDW 17.3 % (11.5-14.5); WBC 6.6 10x3/uL (4.8-10.8)
--- NOTE | 2019-04-10 08:25 | NUR ---
PATIENT ASLEEP. CHECKED TO SEE IF DRY AND CLEAN. HE WAS. CL IN REACH. PHONE IN REACH. NO NEEDS AT THIS TIME. JACQUE
[2019-04-10 09:32] VITALS: BP 97/54
--- NOTE | 2019-04-10 11:18 | NUR ---
INFUSAPORT DRESSING CHANGED. CL IN REACH. 150 ML OF HN GLUCERNA TOLERATED. 460 FOR FLUSH AND MEDICATIONS. WCTM
--- NOTE | 2019-04-10 13:17 | NUR ---
Nutrition follow-up: Diet: Regular PO Intake poor Pt receiving TwoCal HN 4 cans per day bolus via PEG tube Pt with some nausea, diarrhea (Diarrhea may be caused by the mag oxide daily) Labs reviewed Wt: 211# Due to nausea, may need to decrease bolus feeds to 3 cans a day between meals to encourage increased po intake. RDN following.
[2019-04-10 14:02] VITALS: BP 99/64
[2019-04-10 18:48] VITALS: BP 95/58
[2019-04-10 20:00] VITALS: BP 95/55
--- NOTE | 2019-04-10 23:17 | NUR ---
A/O WITH NO SIGNS OF ACUTE DISTRESS. LT CHEST INFUSING WITH DRESSING CDI. PEG TUBE NOTED TO THE LUQ. RESIDUAL VOLUME 5ML. GAVE 147ML OF BOLUS FEEDING. PT REQUESTED FEEDING TO STOP BECAUSE HE FELT FULL AND DIDN'T WANT TO VOMIT. SUPRAPUBIC RUBIN NOTED TO LOWER MIDLINE OF ABDOMEN. DRESSING CHANGED, SKIN IS FREE OF REDNESS. DENIES NEEDS AT THIS TIME. CONTINUE PLAN FO CARE.
[2019-04-11] VITALS (7 sets, daily range): BP systolic 91–157; BP diastolic 54–75
[2019-04-11 06:55] LABS: BASOPHILS 0.6 % (0-2); EOSINOPHILS 6.4 % (0-7); HEMATOCRIT 29.1 % (42.0-54.0); HEMOGLOBIN 9.3 g/dL (13.5-17.5); IMMATURE GRANULOCYTES 0.7 % (0-5); LYMPHOCYTES 10.9 % (15-50); MCH 29.7 pg (26.0-34.0); MONOCYTES 7.4 % (2-11); PLATELET COUNT 171 10x3/uL (130-400); RBC 3.13 10x6/uL (4.20-6.10); RDW 17.9 % (11.5-14.5)
[2019-04-11 07:22] LABS: CALC OSMOLALITY 271 mosm/kg (275-300); CARBON DIOXIDE 19.3 mmol/L (21.0-32.0); CHLORIDE - SERUM 110 mmol/L (98-107); CREATININE - SERUM 0.7 mg/dL (0.6-1.3); GLUCOSE 73 mg/dL (74-106); POTASSIUM - SERUM 3.4 mmol/L (3.5-5.1); SODIUM 137 mmol/L (136-145); UREA NITROGEN 9 mg/dL (7-18); eGFR NON AFRICAN AMERICAN > 90 mL/min (90-120)
--- NOTE | 2019-04-11 19:00 | NUR ---
BEDSIDE REPORT RECEIVED AND CARE OF PT ASSUMED. PT LYING IN SUPINE POSITION WATCHING TV. LEFT IP PATENT WITH NS INFUSING AT 50 ML/HR. RUBIN CATHETER DRAINING TO GRAVITY WITH YELLOW URINE IN COLLECTION BAG. SUPRAPUBIC CATHETER DRAINING TO GRAVITY WITH SMALL AMOUNT OF URINE IN BAG. DRESSING AROUND SUPRAPUBIC CATHETER MOIST WITH URINE. DRESSINGS ON LEFT HIP AND RIGHT HIP WITH DRAINAGE PRESENT. ENTERIC ISOLAION IN PLACE. WILL MONITOR FOR NEEDS.
--- NOTE | 2019-04-11 20:58 | NUR ---
HS MEDICATIONS GIVEN. GAVE 1 CAN BOLUS FEEDING VIA PEG TUBE PER ORDER. FLUSHED TUBE AFTER. WILL CONTINUE TO MONITOR FOR NEEDS.
--- NOTE | 2019-04-11 22:29 | NUR ---
GAVE OXYCODONE 20 MG PO PER PT REQUEST FOR PAIN. WILL MONITOR FOR EFFECTIVENESS.
--- NOTE | 2019-04-11 22:30 | NUR ---
CHANGED ALL DRESSINGS. CLEANSED ALL WOUNDS WITH WOUND TRANSFORMATION COACH. COVERED BREAKDOWN ON TESTICALS WITH CALASEPTINE PASTE. COVERED SMALL WOUND ON RIGHT HIP WITH 3 INCH MEPILEX DRESSING. PACKED LARGE DECUBITIS ULCER ON LEFT HIP WITH MOISTENED KERLEX...ENTIRE 3 INCH ROLL PACKED IN WOUND AND COVERED WITH DRY 4X4'S. 4X4'S COVERED WITH ABD PAD APPLIED TO SUPRAPUBIC CATHETER INSERTION SITE... OLD DRESSING SOAKED WITH URINE.
--- NOTE | 2019-04-11 23:19 | NUR ---
GAVE ZOFRAN IVP FOR C/O NAUSEA. WILL MONITOR FOR EFFECTIVENESS.
[2019-04-12] VITALS: BP 89/59
[2019-04-12 04:00] VITALS: BP 97/54
[2019-04-12 05:55] LABS: BASOPHILS 0.3 % (0-2); EOSINOPHILS 5.7 % (0-7); HEMATOCRIT 29.3 % (42.0-54.0); HEMOGLOBIN 9.3 g/dL (13.5-17.5); IMMATURE GRANULOCYTES 0.5 % (0-5); MCH 29.4 pg (26.0-34.0); MCHC 31.7 g/dL (31.0-37.0); MCV 92.7 fL (80.0-100.0); MONOCYTES 7.6 % (2-11); NEUTROPHILS 72.9 % (40-80); PLATELET COUNT 140 10x3/uL (130-400); RBC 3.16 10x6/uL (4.20-6.10); RDW 17.6 % (11.5-14.5); WBC 6.5 10x3/uL (4.8-10.8)
[2019-04-12 06:32] LABS: CALC OSMOLALITY 272 mosm/kg (275-300); CHLORIDE - SERUM 109 mmol/L (98-107); CREATININE - SERUM 0.6 mg/dL (0.6-1.3); GLUCOSE 78 mg/dL (74-106); MAGNESIUM - SERUM 1.9 mg/dL (1.8-2.4); POTASSIUM - SERUM 3.3 mmol/L (3.5-5.1); SODIUM 138 mmol/L (136-145); UREA NITROGEN 8 mg/dL (7-18); eGFR NON AFRICAN AMERICAN > 90 mL/min (90-120)
[2019-04-12 08:18] VITALS: BP 90/71
--- NOTE | 2019-04-12 10:08 | NUR ---
RESTING IN BED, NO DISTRESS NOTED, STATES HE IS SLEEPY, MED GIVEN PER PEG WITH FEEDING, MIHIR WELL, IV PER PORT, 2 RUBIN BAGS TO GRAVITY
[2019-04-12 13:11] VITALS: BP 90/71
[2019-04-12 17:09] VITALS: BP 99/76
--- NOTE | 2019-04-12 18:43 | NUR ---
GIVEN CHRIS FEEDING PER PEG, MIHIR WELL, CONT TO MONITOR
--- NOTE | 2019-04-12 19:45 | NUR ---
PT SITTING UP IN BED WITHOUT DISTRESS, AOX4. LEFT PORT INFUSING NS. SCDS ON. SUPRAPUBIC CATH IN PLACE, LEAKING AROUND SITE. PROVIDED LORE CARE, CHANGED ABD PAD. CLEANED AROUND PEG TUBE AND CHANGED DRESSING. APPLIED TO CALMOSEPTINE TO SCROTUM, REDDENED, EXCORIATION WITH SCANT BLOODY DRAINAGE. GIVEN HS MEDS AT THIS TIME. REFUSED 2000 FEEDING. STATES HAVING SOME NAUSEA. CHANGED GOWN AND LINENS AT THIS TIME. PROVIDED ICE WATER. DENIES NEEDS. CL IN REACH, WILL CTM
[2019-04-12 20:00] VITALS: BP 93/60
--- NOTE | 2019-04-12 22:00 | NUR ---
PT HAVING NAUSEA, GAVE ZOFRAN ORDERED. PROVIDED EXTRA BLANKET. DENIES OTHER NEEDS. CL IN REACH, WILL CTM
[2019-04-13] VITALS: BP 93/53
[2019-04-13 04:00] VITALS: BP 99/61
[2019-04-13 07:57] LABS: BASOPHILS 0.6 % (0-2); EOSINOPHILS 6.6 % (0-7); HEMATOCRIT 29.9 % (42.0-54.0); HEMOGLOBIN 9.5 g/dL (13.5-17.5); LYMPHOCYTES 18.1 % (15-50); MCH 29.4 pg (26.0-34.0); MCHC 31.8 g/dL (31.0-37.0); MCV 92.6 fL (80.0-100.0); MEAN PLATELET VOLUME 8.6 fL (7.4-10.4); NEUTROPHILS 66.7 % (40-80); PLATELET COUNT 127 10x3/uL (130-400); RBC 3.23 10x6/uL (4.20-6.10); RDW 17.5 % (11.5-14.5)
[2019-04-13 08:10] LABS: CALCIUM 7.2 mg/dL (8.5-10.1); CARBON DIOXIDE 22.9 mmol/L (21.0-32.0); CHLORIDE - SERUM 110 mmol/L (98-107); CREATININE - SERUM 0.6 mg/dL (0.6-1.3); POTASSIUM - SERUM 3.5 mmol/L (3.5-5.1); SODIUM 139 mmol/L (136-145); UREA NITROGEN 8 mg/dL (7-18); eGFR NON AFRICAN AMERICAN > 90 mL/min (90-120)
[2019-04-13 08:13] LABS: CALC OSMOLALITY 274 mosm/kg (275-300); GLUCOSE 72 mg/dL (74-106)
--- NOTE | 2019-04-13 11:37 | NUR ---
RESTING IN BED, CONT TO HAVE LOOSE STOOLS, IV PER PORT, C/O NAUSEA, MEDICATED, CONT TO MONITOR
[2019-04-13 12:27] VITALS: BP 112/65
--- NOTE | 2019-04-13 16:11 | NUR ---
HAVING NAUSEA TODAY, MEDICATED X1, REFUSED LUNCH PEG FEEDING, 3 LOOSE STOOLS TODAY AT THIS TIME, CONT TO MONITOR
[2019-04-13 16:57] VITALS: BP 98/61
--- NOTE | 2019-04-13 19:30 | NUR ---
PT SITTING UP IN BED WITHOUT DISTRESS, AOX4. LEFT CHEST PORT INFUSING NS. DENIES NAUSEA AT THIS TIME. RUBIN IN PLACE. SUPRAPUBIC CATH IN PLACE. DRESSING TO ABD CDI. DENIES NEEDS AT THIS TIME. CL IN REACH, WILL CTM
[2019-04-13 20:00] VITALS: BP 92/53
--- NOTE | 2019-04-13 20:15 | NUR ---
PT AGREED TO 2000 TUBE FEED. GAVE HS MEDS AND STARTED FEEDING. PT ASKED TO STOP SNF THROUGH FEED STATING HE FELT IF HE WAS GOING TO BE NAUSEAS. FLUSHED BEFORE AND AFTER. REFUSED ZOFRAN WHEN OFFERED. DENIES NEEDS. CL IN REACH, WILL CTM
[2019-04-14 04:00] VITALS: BP 97/58
[2019-04-14 04:27] LABS: CALCIUM 7.3 mg/dL (8.5-10.1); CARBON DIOXIDE 23.2 mmol/L (21.0-32.0); CHLORIDE - SERUM 109 mmol/L (98-107); CREATININE - SERUM 0.5 mg/dL (0.6-1.3); POTASSIUM - SERUM 3.3 mmol/L (3.5-5.1); SODIUM 138 mmol/L (136-145); UREA NITROGEN 7 mg/dL (7-18); eGFR NON AFRICAN AMERICAN > 90 mL/min (90-120)
[2019-04-14 04:29] LABS: CALC OSMOLALITY 272 mosm/kg (275-300); GLUCOSE 74 mg/dL (74-106)
[2019-04-14 04:31] LABS: BASOPHILS 0.6 % (0-2); EOSINOPHILS 7.4 % (0-7); HEMATOCRIT 30.4 % (42.0-54.0); HEMOGLOBIN 9.7 g/dL (13.5-17.5); IMMATURE GRANULOCYTES 1.1 % (0-5); LYMPHOCYTES 14.2 % (15-50); MCH 29.6 pg (26.0-34.0); MCHC 31.9 g/dL (31.0-37.0); MCV 92.7 fL (80.0-100.0); MEAN PLATELET VOLUME 8.9 fL (7.4-10.4); MONOCYTES 7.9 % (2-11); NEUTROPHILS 68.8 % (40-80); PLATELET COUNT 128 10x3/uL (130-400); RBC 3.28 10x6/uL (4.20-6.10); RDW 17.5 % (11.5-14.5); WBC 4.7 10x3/uL (4.8-10.8)
[2019-04-14] MEDS ORDERED: Vancomycin HCl PO (07:26)
--- NOTE | 2019-04-14 07:40 | NUR ---
PATIENT AWAKE LAYING ON BACK. CL IN REACH. NO NEEDS AT THIS TIME. WCTM
[2019-04-14 08:20] VITALS: BP 102/63
--- NOTE | 2019-04-14 10:59 | NUR ---
PATIENT RESTING. QUESTIONED WHEN HIS LAST ANTIBIOTIC WOULD BE. I RESPONDED 1130 WOULD BE HIS LAST IV MERREM. CL IN REACH. NO FURTHER NEEDS AT THIS TIME. CL IN REACH.
--- NOTE | 2019-04-14 11:45 | MORECARE ---
CASE MANAGEMENT DISCHARGE SUMMARY PATIENT: HARSHAD OLIVER UNIT: [id number] ADM DATE: 04/04/19 AGE: 49 : 68 SEX: M ROOM/BED: D.2202 AUTHOR: KEMAR,DOC PHYSICIAN: REFERRING PHYSICIAN: AYSHA SEGUNDO MD DATE OF SERVICE: 04/14/19 Discharge Plan Patient Name: HARSHAD OLIVER Facility: [facility]:[place] : 1970 Planned Disposition: Home Anticipated Discharge Date: Discharge Date: Expected LOS: Initial Reviewer: [email or web address] Initial Review Date: 04/06/2019 Generated: 04/14/19 12:45 pm Comments DCP- Discharge Planning Updated by [id number]: Herlinda Varghese on 04/14/19 10:[address] PATIENT TO DISCHARGED HOME TODAY, IMM SERVED AND EXPLAINED. 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 HE DENIES ANY NEEDS FROM A CM STANDPOINT DCP- Discharge Planning Updated by [id number]: Tiffanie Martinez on 04/06/19 1:[address] Patient Name: HARSHAD OLIVER Admission Status: Elective Accout number: [id number] Admission Date: 04-04-2019 : 1970 Admission Diagnosis: Attending: KSENIA Current LOS: 2 Anticipated DC Date: Planned Disposition: Home Primary Insurance: MEDICARE A & B Discharge Planning Comments: CM met with patient at bedside after explaining CM role and obtaining verbal consent. CM discussed availability / needs of home health, REHAB and medical equipment. PATIENT DENIES ANY DISCHARGE NEEDS. STATES HAS EQUIPMENT AT HOME. DOESN'T WANT HH OR REHAB. PLANS TO RETURN HOME AFTER APPROX 10 DAYS IV ABX. CM TO FOLLOW AND ASSIST. Fryer Operator: Tiffanie Martinez DCPIA - Discharge Planning Initial Assessment Updated by [email or web address]: Tiffanie Martinez on 04/06/19 2:34 pm * Is the patient Alert and Oriented? Yes * PCP TEJADA * [facility] * Preadmission Environment Home with Family * ADLs Independent * Other Equipment LIFT, HB, WC, ETC * Community resources currently utilized None * Additional services required to return to the preadmission environment? No * Can the patient safely return to the preadmission environment? Yes * Has this patient been hospitalized within the prior 30 days at any hospital? No Coverage Notice Reviewer: [email or web address] Eulalio Varghese Notice Issued Date-Time: 04/14/2019 9:30 Notice Type: IM Discharge Notice Notice Delivered To: Patient Relationship to Patient: Marine Meteorologist Name: Delivery Method: HAND - Hand Delivered Bindu Days: Prior Verbal Notification: Recipient Understood Notice: Yes Recipient Signature: Yes Med Rec Note Co-signed by Attending: Coverage Notice Comment: Last DP export: 04/06/19 1:43 p Patient Name: HARSHAD OLIVRE Page [phone] at 1145 All edits/amendments must be made on the electronic document DICTATION DATE: 04/14/19 1145 SURVEY RESEARCHER: MICHAEL 04/14/19 1145 RPT#: [id number] DC DATE: STATUS: ADM IN [facility] [address] [place] [address] END OF REPORT
--- NOTE | 2019-04-14 11:56 | NUR ---
PATIENT CONCERNED ABOUT US MAKING HIM LEAVE BEFORE HIS RIDE IS HERE. HIS GIRLFRIEND IS AT WORK AT A PENITENTIARY. CL IN REACH. DISCHARGE PAPERS SIGNED. REASSURED HIM HE WILL BE READY WHENEVER HIS RIDE GETS HERE. JACQUE
[2019-04-14 12:55] VITALS: BP 99/64
--- NOTE | 2019-04-14 13:55 | NUR ---
PATIENT BOLUS FEED COMPLETED. TOLERATED WELL. UPON REDRESSING ABD BANDAGE I FOUND THE SUPRAPUBIC CATH OUT WITH THE BULB STILL BLOWN UP. CLEAN LINENS PROVIDED BECAUSE PATIENT HAD A LOOSE BM. DRESSINGS CHANGED TO BUTTOCK, COCCYX, AND LEFT ANKLE. CALL PLACED TO DR SEGUNDO OFFICE. ADVISED TO CONSULT UROLOGY. CL IN REACH. PHONE IN REACH. NO FURTHER NEEDS AT THIS TIME. WCTM
[2019-04-14 16:36] VITALS: BP 97/60
--- NOTE | 2019-04-14 18:52 | NUR ---
PATIENT WAITING ON SO TO GET HERE TO DISCHARGE.
--- NOTE | 2019-04-14 20:20 | NUR ---
LT CW INFUSAPORT FLUSHED WITH HEPARIN AND DE-ACCESSED AT THIS TIME. STAFF ASSISTED WITH DRSG PATIENT AND TO W/C. PT TAKEN TO FAMILY CAR VIA WEIGHT CHECKER ACCOMPANIED BY PTS GIRLFRIEND.
--- NOTE | 2019-04-15 09:43 | MORECARE ---
CASE MANAGEMENT DISCHARGE SUMMARY PATIENT: HARSHAD OLIVER UNIT: [id number] ADM DATE: 04/04/19 AGE: 49 : 68 SEX: M ROOM/BED: D.2202 AUTHOR: KEMAR,DOC PHYSICIAN: REFERRING PHYSICIAN: AYSHA SEGUNDO MD DATE OF SERVICE: 04/15/19 Discharge Plan Patient Name: HARSHAD OLIVER Facility: [facility]:Gays : 1970 Planned Disposition: Home Anticipated Discharge Date: Discharge Date: 04/14/2019 Expected LOS: Initial Reviewer: [email or web address] Initial Review Date: 04/06/2019 Generated: 04/15/19 10:43 am Comments DCP- Discharge Planning Updated by [email or web address]: Herlinda Varghese on 04/14/19 10:[address] PATIENT TO DISCHARGED HOME TODAY, IMM SERVED AND EXPLAINED. HE STATED THAT HIS GIRLFRIEND WILL BE HIS ASSURANCE ASSOCIATE HOME. HE DENIES ANY NEEDS FROM A CM STANDPOINT DCP- Discharge Planning Updated by [email or web address]: Tiffanie Martinez on 04/06/19 1:[address] Patient Name: HARSHAD OLIVER Admission Status: Elective Accout number: [id number] Admission Date: 04-04-2019 : 1970 Admission Diagnosis: Attending: KSENIA Current LOS: 2 Anticipated DC Date: Planned Disposition: Home Primary Insurance: MEDICARE A & B Discharge Planning Comments: CM met with patient at bedside after explaining CM role and obtaining verbal consent. CM discussed availability / needs of home health, REHAB and medical equipment. PATIENT DENIES ANY DISCHARGE NEEDS. STATES HAS EQUIPMENT AT HOME. DOESN'T WANT HH OR REHAB. PLANS TO RETURN HOME AFTER APPROX 10 DAYS IV ABX. CM TO FOLLOW AND ASSIST. Material Inspector: Tiffanie Martinez DCPIA - Discharge Planning Initial Assessment Updated by [email or web address]: Tiffanie Martinez on 04/06/19 2:34 pm * Is the patient Alert and Oriented? Yes * PCP TEJADA * Pharmacy [facility] * Preadmission Environment Home with Family * ADLs Independent * Other Equipment LIFT, HB, WC, ETC * Community resources currently utilized None * Additional services required to return to the preadmission environment? No * Can the patient safely return to the preadmission environment? Yes * Has this patient been hospitalized within the prior 30 days at any hospital? No Coverage Notice Reviewer: [id number] Eulalio Varghese Notice Issued Date-Time: 04/14/2019 9:30 Notice Type: IM Discharge Notice Notice Delivered To: Patient Relationship to Patient: Energy Sales Broker Name: Delivery Method: HAND - Hand Delivered Bindu Days: Prior Verbal Notification: Recipient Understood Notice: Yes Recipient Signature: Yes Med Rec Note Co-signed by Attending: Coverage Notice Comment: Last DP export: 04/14/19 10:45 a Patient Name: HARSHAD OLIVER Page [id number] at 0943 All edits/amendments must be made on the electronic document DICTATION DATE: 04/15/19942 [place] MENDER: MICHAEL 04/15/19942 RPT#: [id number] DC DATE:04/14/19 STATUS: DIS IN [facility] [address] [place] [address] END OF REPORT
== END 2019-04-14 21:20 | disposition home or self-care (01) | DRG 698 ==
LOC: D.MS 18:18
PROVIDERS: ADMIT Emergency Medicine; ATTEND Emergency Medicine
DX: T83.511A Infection and inflammatory reaction due to indwelling urethral catheter, initial encounter (principal); L89.323 Pressure ulcer of left buttock, stage 3; A41.9 Sepsis, unspecified organism; C78.4 Secondary malignant neoplasm of small intestine; E87.1 Hypo-osmolality and hyponatremia; A04.72 Enterocolitis due to Clostridium difficile, not specified as recurrent; N39.0 Urinary tract infection, site not specified; C67.9 Malignant neoplasm of bladder, unspecified; D64.9 Anemia, unspecified; E87.6 Hypokalemia; L89.892 Pressure ulcer of other site, stage 2; L89.150 Pressure ulcer of sacral region, unstageable

== ENCOUNTER 2019-04-29 12:03 | Inpatient (IN) | payer MEDICARE ==
[~2019-04-29] VITALS: Ht 188 cm; Wt 90.9 kg
[~2019-04-29 12:03] MED LIST changes: +BENADRYL25 MG PT; +POTASSIUM CHLORIDE PT; +THORAZINE25 MG PO; +Vancomycin HCl PO
[2019-04-29 12:35] VITALS: BP 117/78; BMI 25.7
[2019-04-29 14:02] VITALS: Ht 188 cm; Wt 90.9 kg
[2019-04-29 14:54] LABS: BASOPHILS 0.2 % (0-2); EOSINOPHILS 3.3 % (0-7); HEMATOCRIT 32.1 % (42.0-54.0); HEMOGLOBIN 10.9 g/dL (13.5-17.5); IMMATURE GRANULOCYTES 0.9 % (0-5); LYMPHOCYTES 10.1 % (15-50); MCH 30.7 pg (26.0-34.0); MCV 90.4 fL (80.0-100.0); MEAN PLATELET VOLUME 9.5 fL (7.4-10.4); NEUTROPHILS 76.5 % (40-80); RBC 3.55 10x6/uL (4.20-6.10); WBC 6.5 10x3/uL (4.8-10.8)
[2019-04-29 14:56] LABS: PLATELET COUNT 369 10x3/uL (130-400)
[2019-04-29 15:23] LABS: ALBUMIN 1.4 g/dL (3.4-5.0); ALKALINE PHOSPHATASE 223 U/L (46-116); ALT (SGPT) 29 U/L (10-68); BILIRUBIN - TOTAL 0.53 mg/dL (0.2-1.3); CALC OSMOLALITY 265 mosm/kg (275-300); CALCIUM 7.5 mg/dL (8.5-10.1); CHLORIDE - SERUM 101 mmol/L (98-107); CREATININE - SERUM 0.9 mg/dL (0.6-1.3); GLUCOSE 76 mg/dL (74-106); PROTEIN - SERUM 7.1 g/dL (6.4-8.2); SODIUM 134 mmol/L (136-145); UREA NITROGEN 10 mg/dL (7-18); eGFR NON AFRICAN AMERICAN > 90 mL/min (90-120)
[2019-04-29 15:24] LABS: POTASSIUM - SERUM 2.7 mmol/L (3.5-5.1)
[2019-04-29 16:45] VITALS: BP 110/65
--- NOTE | 2019-04-29 18:20 | NUR ---
TRANSFER CENTER CONTACTED PER [facility] APN REQUEST FOR TRANSFER TO [facility]. SPOKE WITH HEMMA AT TRANSFER CENTER, PROVIDING INFORMATION NEEDED FOR TRANSFER
[2019-04-29 21:10] VITALS: BP 112/67
[2019-04-29] MEDS ORDERED: ZYVOX600 MG PO (22:54)
[2019-04-29] MEDS ORDERED: LOVENOX40 MG/0.4 SC (22:58)
[2019-04-29] MEDS ORDERED: ZOSYN 3.3753.375 G1 IV (22:58)
[2019-04-29] MEDS ORDERED: MERREM 1 GM/NS 11 G1 IV (22:58)
[2019-04-29] MEDS ORDERED: K-TAB10 MEQ PO (22:59)
[2019-04-29] MEDS ORDERED: ACETAMINOPHEN500 M1 PO (22:59)
--- NOTE | 2019-04-30 00:05 | NUR ---
ASSESSED AT THE BEGINNING OF THE SHIFT. HE IS ALERT AND ORIENTED, ABLE TO VERBALIZE NEEDS. HE HAS BEEN RESTING QUIET AND NO COMPLAINTS VOICED UNTIL MED TIME AT WHICH HE REQUESTED TO HAVE PAIN MEDS, GIVEN ORDERED. AT JUST AFTER MIDNIGHT HE WAS SET UP FOR A TRANSFER TO [facility] AND THE AMBULANCE CAME TO PICK HIM UP. REPORT HAD ALREAD BEEN CALLED AND THE ANTIBOTIC FOR MIDNIGHT AND PO MED FOR 0100 AM WERE GIVEN AT THIS TIME.
== END 2019-04-30 00:08 | disposition short-term general hospital (02) | DRG 603 ==
LOC: D.MS 12:03
PROVIDERS: Orthopaedic Surgery; ADMIT Legal Medicine; ATTEND Legal Medicine
DX: L03.818 Cellulitis of other sites (principal); N39.0 Urinary tract infection, site not specified; C78.80 Secondary malignant neoplasm of unspecified digestive organ; G82.20 Paraplegia, unspecified; C67.9 Malignant neoplasm of bladder, unspecified; D64.9 Anemia, unspecified; E11.9 Type 2 diabetes mellitus without complications; L02.818 Cutaneous abscess of other sites